=== PATIENT | female | born 1995 | race Caucasian/White ===

== ENCOUNTER → 2017-10-03 13:55 | Outpatient (CLI) | payer BC, SELFPAY ==
[2017-10-03 14:19] LABS: Basophils % 0.6 % (0.1-2.0); Eosinophils # 0.3 K/mm3 (0.0-0.4); Eosinophils % 3.9 % (0.1-12.0); Hematocrit 45.2 % (37.0-47.0); Hemoglobin 14.2 g/dL (12.2-16.2); Lymphocytes # 2.3 K/mm3 (0.7-4.5); Lymphocytes % 34.9 K/mm3 (10-50); Mean Corpuscular HGB Conc 31.4 g/dL (31.8-35.4); Mean Corpuscular Hemoglobin 27.8 pg (27.0-31.2); Mean Corpuscular Volume 88.6 fl (81-99); Mean Platelet Volume 7.7 fl (7.4-10.4); Monocytes # 0.4 K/mm3 (0.1-1.0); Monocytes % 5.4 % (1.7-9.3); Neutrophils # 3.7 K/mm3 (1.8-7.8); Neutrophils % 55.2 % (37.0-80.0); Platelet Count 287 K/mm3 (142-424); Red Cell Distribution Width 12.3 % (11.5-17.5); White Blood Count 6.6 K/mm3 (4.8-10.8)
[2017-10-03 14:43] LABS: Urine Pregnancy, HCG Qual. Negative (Negative)
== END ==
PROVIDERS: Visit Provider Otolaryngology
DX: Z01.818 Encounter for other preprocedural examination (principal); H65.22 Chronic serous otitis media, left ear; H66.92 Otitis media, unspecified, left ear
CPT/HCPCS: 81025; 85025

== ENCOUNTER → 2019-04-20 16:39 | Outpatient (CLI) | payer BC, SELFPAY ==
[2019-04-20 21:02] LABS: HCG,Quantitative 0 mIU/mL
[2019-04-22 11:06] LABS: HIV Screen 4th Generation wRfx Non Reactive (Non Reactive); Rapid Plasma Reagin Ab Titer Non Reactive (NonRea<1:1)
[2019-04-22 11:11] LABS: Hep A Ab, IgM Negative (Negative); Hepatitis B Core Antibody IgM Negative (Negative); Hepatitis B Surface Antigen Negative (Negative); Hepatitis C Antibody <0.1 s/co ratio (0.0-0.9)
[2019-04-24 06:26] LABS: HSV 1 IgG, Type Spec 1.88 index (0.00-0.90); HSV 2 IgG, Type Spec <0.91 index (0.00-0.90)
== END ==
PROVIDERS: Visit Provider Nurse Practitioner Obstetrics & Gynecology
DX: Z72.51 High risk heterosexual behavior (principal)
CPT/HCPCS: 36415; 80074; 84702; 86592; 86695; 86703; 86790; G0432

== ENCOUNTER → 2019-05-11 12:27 | Outpatient (CLI) | payer BC, SELFPAY ==
[2019-05-11 13:02] LABS: Basophils % 0.4 % (0.1-2.0); Eosinophils # 0.1 K/mm3 (0.0-0.4); Eosinophils % 1.2 % (0.1-12.0); Hematocrit 42.3 % (37.0-47.0); Hemoglobin 13.8 g/dL (12.2-16.2); Lymphocytes # 2.3 K/mm3 (0.7-4.5); Lymphocytes % 21.5 % (10-50); Mean Corpuscular HGB Conc 32.6 g/dL (31.8-35.4); Mean Corpuscular Volume 91.8 fl (81-99); Mean Platelet Volume 8.1 fl (7.4-10.4); Monocytes # 0.4 K/mm3 (0.1-1.0); Monocytes % 4.1 % (1.7-9.3); Neutrophils # 7.6 K/mm3 (1.8-7.8); Neutrophils % 72.8 % (37.0-80.0); Platelet Count 314 K/mm3 (142-424); Red Cell Distribution Width 12.2 % (11.5-17.5); White Blood Count 10.5 K/mm3 (4.8-10.8)
[2019-05-12 09:45] LABS: HIV Screen 4th Generation wRfx Non Reactive (Non Reactive); Rapid Plasma Reagin Ab Titer Non Reactive (NonRea<1:1)
[2019-05-13 10:46] LABS: Hepatitis B Surface Antigen Negative (Negative); Hepatitis C Antibody <0.1 s/co ratio (0.0-0.9)
== END ==
PROVIDERS: PCP Nurse Practitioner Obstetrics & Gynecology; Visit Provider Nurse Practitioner Obstetrics & Gynecology
DX: Z34.90 Encounter for supervision of normal pregnancy, unspecified, unspecified trimester (principal)
CPT/HCPCS: 36415; 85025; 86592; 86703; 86762; 86850; 87340; 87380; G0432

== ENCOUNTER 2020-03-01 17:50 | Emergency (ER) | payer BC, SELFPAY ==
[2020-03-01 17:51] VITALS: BP 137/79; PULSE 80; RESP 16; TEMP 36.6; O2SAT 98; BMI 29.2
--- NOTE | 2020-03-01 18:36 | HMH.EDUTC ---
[facility] [place]ression: Abscess of left external ear Left otitis media Qualifiers: Otitis media type: suppurative Chronicity: acute Recurrence: non-recurrent Spontaneous tympanic membrane rupture: without spontaneous rupture Qualified Code(s): H66.002 - Acute suppurative otitis media without spontaneous rupture of ear drum, left ear Disposition: Home, Self-Care Condition on Discharge: Good Instructions: Middle Ear Infection Additional Instructions: Drink plenty of fluids. Take tylenol or ibuprofen for pain or fever. Take the medications as directed. Follow up with your regular doctor. GO TO THE ER FOR ANY WORSENING SYMPTOMS Apply a warm wet wash cloth to your left external ear three or four times per day. Apply the topical antibiotic ointment (mupirocin) to the knot on your ear as directed. Prescriptions: Amoxicillin [Amoxicillin 500mg Tab] 500 mg PO TID 10 Days #30 tab Transmission Status: Received by [facility] Mupirocin [Bactroban 2% Ointment 22gm tube] 1 applicatio TP TID 7 Days #1 tube Transmission Status: Received by [facility] Referrals: Jam Gordon MD [Primary Care Provider] - Time of Disposition: 18:46 Medical Decision Making - Medical Records Medical records reviewed: No: I reviewed the patient's medical records. - Edd Inquiry Pt receiving controlled substance: No Vital Signs: 03/01/20 17:51 Temperature 98 F Temperature Source Oral Pulse Rate [Right] 80 Respiratory Rate 16 Blood Pressure [Right Arm] 137/79 Blood Pressure Mean [Right Arm] 98 Blood Pressure Source [Right Arm] Automatic Cuff Blood Pressure Position [Right Arm] Sitting 02 Sat by Pulse Oximetry 98 Oxygen Delivery Method Room Air [facility] [place] - General Stated complaint: Left ear knot,ringin in ear Time Seen by Provider: 03/01/20 18:20 Mode of Arrival: Ambulatory Source of Information: Patient Limitations: No Limitations Description of Symptoms (Recalled from Triage Doc. by RN): pt c/o knot in her left ear HEENT Symptoms (Recalled from RN notes): No Resp Symptoms (Recalled from RN notes): No Skin Symptoms (Recalled from RN notes): Yes (knot on left ear) MS Symptoms (Recalled from RN notes): No Functional Status (Recalled from RN notes): na - History of Present Illness Provider Complaint: She c/o having a painful knot on her left ear. This has been there for the past 3 days approx. She has also had some ringing in that ear. She has a history of having a t-tube in that ear. - Related Data Home Medications Medication Instructions Recorded Confirmed biotin 1 mg capsule 1 mg PO DAILY 05/11/19 05/20/19 prenat.vits,robbie,[id number] 1 tab PO DAILY 05/11/19 05/20/19 Previous Rx's Medication Instructions Recorded Amoxicillin [Amoxicillin 500mg Tab] 500 mg PO TID 10 Days #30 tab 03/01/20 Mupirocin [Bactroban 2% Ointment 1 applicatio TP TID 7 Days #1 tube 03/01/20 22gm tube] Allergies Allergy/AdvReac Type Severity Reaction Status Date / Time No Known Allergies Allergy Verified 03/01/20 18:07 - Worker's Comp Is this a Worker's Comp case?: No [facility] History - Hepatitis A Screen Drug use history?: No High risk sexual behaviors?: No History of sexually transmitted infection?: No Currently employed?: No Childcare worker?: No Do you have indoor plumbing?: Yes Do you have electricity?: Yes Attestation statement:: This patient has been screened for Hepatitis A risk factors. I have reviewed the patient's past medical history: Yes Medical History: Reports:: Depression Denies:: Cancer, Diabetes Mellitus Type 1, Diabetes Mellitus Type 2, Internal Pacemaker, MRSA, Seizures Other Medical History: Reports: Other. Denies: Blood Transfusion Reaction Laterality Cases: Bilateral: Tonsillectomy, Other Other Surgeries: Yes: No Previous Surgery. No: Pacemaker Amputation: No Fractures: No - Social History Smoking Status: Current every d
[2020-03-01 18:46] VITALS: BP 130/70; PULSE 84; RESP 16; TEMP 36.9; O2SAT 100
== END 2020-03-01 18:50 | disposition home or self-care (01) ==
PROVIDERS: Emergency Provider Nurse Practitioner Family; PCP Emergency Medicine
DX: H60.02 Abscess of left external ear (principal); H66.002 Acute suppurative otitis media without spontaneous rupture of ear drum, left ear; F33.1 Major depressive disorder, recurrent, moderate; F17.210 Nicotine dependence, cigarettes, uncomplicated
CPT/HCPCS: 99201

== ENCOUNTER 2020-05-11 16:37 | Emergency (ER) | payer BC, OTHER, SELFPAY ==
[2020-05-11 16:37] VITALS: BP 117/69; PULSE 110; RESP 20; TEMP 37; O2SAT 97; BMI 30.7
--- NOTE | 2020-05-11 17:13 | HMH.EDUTC ---
[facility] [place] Impression: UTI (urinary tract infection) Qualifiers: Urinary tract infection type: site unspecified Hematuria presence: with hematuria Qualified Code(s): N39.0 - Urinary tract infection, site not specified Disposition: Home, Self-Care Condition on Discharge: Good Instructions: Trimethoprim/Sulfamethoxazole (Alternative Therapy), Urinary Tract Infection, DI for Urinary Tract Infection (UTI), Phenazopyridine Additional Instructions: *Increase fluids. Water not Soda or Tea *Start antibiotic immediately and be sure to take as ordered for the FULL length of time although you should start to see improvement over the next 48 hours *Pyridium as needed Remember this medication will turn your urine [place]. This is normal but it will stain what ever it gets on *You should not use Pyridium for more than 48 hours. If so , follow up with your primary physician to review urine culture and ensure that antibiotic is adequate for infection *Be SURE to follow up anytime for new or worsening symptoms with your family doctor. AND in 48 hours for urine culture results with your family doctor, if you do not have a doctor then you may call back to the [facility] for urine culture results and further treatment. We do recommend that you choose and establish care with a Primary Care Physician. AND follow up with them in 10-14 days to repeat UA to ensure infection is resolved and blood no longer present *Be sure to let your PCP know that we sent urine cultures from the [facility] so they can follow up to ensure that you area the on the correct antibiotic Call your doctor office and make appointment for 48 hours (2 days from today) to follow up and get the results of your urine culture and further treatment Make sure to follow up to make sure that you are on the correct medication Return if needed Straight to ER if any life threatening symptoms Prescriptions: Sulfamethoxazole/Trimethoprim [Bactrim DS tablet] 1 each PO BID 10 Days #20 tab Transmission Status: Received by [id number] Phenazopyridine HCl [Pyridium 200mg Tablet] 200 pow PO TID #6 tab Transmission Status: Received by [id number] Referrals: Jam Gordon MD [Primary Care Provider] - As needed Time of Disposition: 17:21 Medical Decision Making - Edd Inquiry Pt receiving controlled substance: No Edd was queried for this patient: No Vital Signs: 05/11/20 16:37 05/11/20 17:22 Temperature 98.6 F 98.6 F Temperature Source Oral Oral Pulse Rate 110 H Pulse Rate [Left Radial] 110 H Respiratory Rate 20 20 Blood Pressure 117/69 Blood Pressure [Right Arm] 117/69 Blood Pressure Mean [Right Arm] 85 Blood Pressure Source Automatic Cuff Blood Pressure Source [Right Arm] Automatic Cuff Blood Pressure Position Sitting Blood Pressure Position [Right Arm] Sitting 02 Sat by Pulse Oximetry 97 Oxygen Delivery Method Room Air Room Air - Lab Data Lab results reviewed: Yes: I reviewed the patient's lab results. Lab Results 05/11/20 16:50: Urine Color Yellow, Urine Appearance Cloudy, Urine pH 6.0, Ur Specific [place] 1.020, Urine Protein Trace, Urine Glucose (UA) Negative, Urine Ketones Negative, Urine Blood Trace-i, Urine Nitrate Positive, Urine Bilirubin Negative, Urine Urobilinogen 0.2, Ur Leukocyte Esterase 1+ A, Urine WBC 10-20, Urine Bacteria 2+ 05/11/20 17:10: Urine Color Yellow, Urine Appearance Clear, Urine pH 6.0, Ur Specific [place] 1.020, Urine Protein 1+, Urine Glucose (UA) Negative, Urine Ketones Negative, Urine Blood 1+, Urine Nitrate Positive A, Urine Bilirubin Negative, Urine Urobilinogen 0.2, Ur Leukocyte Esterase 1+ A Orders (Tests/Meds): ORDERS Category Date Time Status Urine Culture Stat Micro 05/11/20 16:50 Received [facility] [place] - General Stated complaint: possible UTI Time Seen by Provider: 05/11/20 17:13 Mode of Arrival: Ambulatory Source of Information: Patient Limitations: No Limitations Description of Symptoms
[2020-05-11 17:22] VITALS: BP 117/69; PULSE 110; RESP 20; TEMP 37; O2SAT 97
[2020-05-11 17:23] LABS: Microscopic, Urine URINE MICROSCOPIC (MICROSCOPIC)
[2020-05-11 17:27] LABS: Appearance,Urine CLOUDY (Clear); Bilirubin,Urine Negative (Negative); Blood, Urine TRACE-I (Negative); Color,Urine YELLOW (Yellow); Glucose,Urine (UA) Negative (Negative); Ketones,Urine Negative (Negative); Leukocyte Esterase,Urine 1+ (Negative); Nitrate,Urine POSITIVE (Negative); Protein,Urine TRACE (Negative); Urobilinogen,Urine 0.2 EU/dl (0.2)
[2020-05-11 17:36] LABS: Bacteria,Urine 2+ /lpf
[2020-05-11 19:01] LABS: Apearance,Urine Clear (Clear); Bilirubin,Urine Negative (Negative); Blood, Urine 1+ (Negative); Color,Urine Yellow (Yellow); Glucose,Urine (UA) Negative (Negative); Ketones,Urine Negative (Negative); Protein,Urine 1+ (Negative); UTC Leukocyte Esterase,Urine 1+ (Negative); UTC Nitrate,Urine Positive (Negative); Urobilinogen,Urine 0.2 EU/dl (0.2)
== END 2020-05-11 17:25 | disposition home or self-care (01) ==
PROVIDERS: Emergency Provider Nurse Practitioner; PCP Emergency Medicine
DX: N39.0 Urinary tract infection, site not specified (principal); F33.1 Major depressive disorder, recurrent, moderate; F17.210 Nicotine dependence, cigarettes, uncomplicated
CPT/HCPCS: 81001; 81003; 87086; 87088; 87186; 99202; G0463

== ENCOUNTER 2020-08-10 16:47 | Emergency (ER) | payer OTHER, SELFPAY ==
[2020-08-10 16:57] VITALS: BP 120/75; PULSE 98; RESP 16; TEMP 36.8; O2SAT 97; BMI 31.9
[2020-08-10 17:02] VITALS: BP 120/75; PULSE 98; RESP 16; TEMP 36.8; O2SAT 97
[2020-08-10 17:07] LABS: Apearance,Urine Clear (Clear); Color,Urine Yellow (Yellow)
[2020-08-10 17:08] LABS: Bilirubin,Urine Negative (Negative); Blood, Urine Negative (Negative); Glucose,Urine (UA) Negative (Negative); Ketones,Urine Negative (Negative); Protein,Urine Negative (Negative); Specific Gravity, Urine 1.025 (1.005-1.030); UTC Leukocyte Esterase,Urine Negative (Negative); UTC Nitrate,Urine Negative (Negative); Urobilinogen,Urine 2 EU/dl (0.2)
--- NOTE | 2020-08-10 17:18 | HMH.EDUTC ---
[facility] [place]: Low back pain Qualifiers: Chronicity: acute Back pain laterality: bilateral Sciatica presence: without sciatica Qualified Code(s): M54.5 - Low back pain Disposition: Home, Self-Care Condition on Discharge: Good Instructions: DI for Low Back Pain Additional Instructions: Go home and rest. It would be best if you rested tomorrow too. No heavy lifting. No twisting. Follow up with your regular doctor. GO TO THE ER FOR ANY WORSENING SYMPTOMS OR CONCERN, ESPECIALLY BOWEL OR BLADDER ISSUES, SADDLE AREA NUMBNESS, FEVER, ETC Prescriptions: Ibuprofen [Ibuprofen 600mg Tablet] 600 mg PO Q6HP PRN #30 tab PRN Reason: Mild Pain Transmission Status: Received by [id number] Referrals: Jam Gordon MD [Primary Care Provider] - Time of Disposition: 17:23 Medical Decision Making - Medical Records Medical records reviewed: No: I reviewed the patient's medical records. - Edd Inquiry Pt receiving controlled substance: No Vital Signs: 08/10/20 16:57 08/10/20 17:02 Temperature 98.3 F 98.3 F Temperature Source Oral Pulse Rate 98 H Pulse Rate [Left] 98 H Respiratory Rate 16 16 Blood Pressure 120/75 Blood Pressure [Right Arm] 120/75 Blood Pressure Mean [Right Arm] 90 Blood Pressure Source [Right Arm] Automatic Cuff Blood Pressure Position [Right Arm] Sitting 02 Sat by Pulse Oximetry 97 Oxygen Delivery Method Room Air - Lab Data Lab Results 08/10/20 17:06: Urine Color Yellow, Urine Appearance Clear, Urine pH 6.0, Ur Specific [place] 1.025, Urine Protein Negative, Urine Glucose (UA) Negative, Urine Ketones Negative, Urine Blood Negative, Urine Nitrate Negative, Urine Bilirubin Negative, Urine Urobilinogen 2, Ur Leukocyte Esterase Negative [facility] [place] General Stated complaint: Possible UTI Time Seen by Provider: 08/10/20 17:18 Mode of Arrival: Ambulatory Source of Information: Patient, Significant Other Limitations: No Limitations Description of Symptoms (Recalled from Triage Doc. by RN): UTI HEENT Symptoms (Recalled from RN notes): No Resp Symptoms (Recalled from RN notes): No Skin Symptoms (Recalled from RN notes): No MS Symptoms (Recalled from RN notes): No Functional Status (Recalled from RN notes): wnl - History of Present Illness Provider Complaint: She states that she has had low back pain for the past 2 days. She is worried that she has a uti because in the past she has felt like this with one. - Related Data Home Medications Medication Instructions Recorded Confirmed biotin 1 mg capsule 1 mg PO DAILY 05/11/19 05/20/19 prenat.vits,robbie,qcs-nyea-prugy 1 tab PO DAILY 05/11/19 05/20/19 Previous Rx's Medication Instructions Recorded Amoxicillin [Amoxicillin 500mg Tab] 500 mg PO TID 10 Days #30 tab 03/01/20 Mupirocin [Bactroban 2% Ointment 1 applicatio TP TID 7 Days #1 tube 03/01/20 22gm tube] Phenazopyridine HCl [Pyridium 200 pow PO TID #6 tab 05/11/20 200mg Tablet] Sulfamethoxazole/Trimethoprim 1 each PO BID 10 Days #20 tab 05/11/20 [Bactrim DS tablet] Ibuprofen [Ibuprofen 600mg 600 mg PO Q6HP PRN #30 tab 08/10/20 Tablet] Allergies Allergy/AdvReac Type Severity Reaction Status Date / Time No Known Allergies Allergy Verified 08/10/20 17:00 - Worker's Comp Is this a Worker's Comp case?: No [facility] [place] History - Hepatitis A Screen Drug use history?: No High risk sexual behaviors?: No History of sexually transmitted infection?: No Currently employed?: No Childcare worker?: No Do you have indoor plumbing?: Yes Do you have electricity?: Yes Attestation statement:: This patient has been screened for Hepatitis A risk factors. I have reviewed the patient's past medical history: Yes Medical History: Reports:: Depression Denies:: Cancer, Diabetes Mellitus Type 1, Diabetes Mellitus Type 2, Internal Pacemaker, MRSA, Seizures Other Medical History: Reports: Other. Denies: Blood Trans
== END 2020-08-10 17:24 | disposition home or self-care (01) ==
PROVIDERS: Emergency Provider Nurse Practitioner Family; PCP Emergency Medicine
DX: M54.5 Low back pain (principal); F17.210 Nicotine dependence, cigarettes, uncomplicated
CPT/HCPCS: 81003; 99202; G0463

== ENCOUNTER → 2021-04-21 13:32 | Outpatient (CLI) | payer OTHER, SELFPAY ==
[2021-04-21 13:35] LABS: Microscopic, Urine URINE MICROSCOPIC (MICROSCOPIC)
[2021-04-21 14:28] LABS: Appearance,Urine CLEAR (Clear); Bilirubin,Urine Negative (Negative); Blood, Urine Negative (Negative); Color,Urine YELLOW (Yellow); Glucose,Urine (UA) Negative (Negative); Ketones,Urine Negative (Negative); Leukocyte Esterase,Urine Negative (Negative); Nitrate,Urine Negative (Negative); PH,Urine 5.5 (5.0-8.5); Protein,Urine Negative (Negative); Specific Gravity, Urine >= 1.030 (1.005-1.030); Urobilinogen,Urine 0.2 EU/dl (0.2)
[2021-04-21 14:45] LABS: Bacteria,Urine Trace /lpf
== END ==
PROVIDERS: Visit Provider Nurse Practitioner Obstetrics & Gynecology
DX: N39.0 Urinary tract infection, site not specified (principal)
CPT/HCPCS: 81001

== ENCOUNTER 2021-05-27 11:28 | Emergency (ER) | payer OTHER, SELFPAY ==
[2021-05-27 11:36] VITALS: BP 133/78; PULSE 79; RESP 18; TEMP 36.9; O2SAT 98; BMI 30.2
--- NOTE | 2021-05-27 12:08 | HMH.EDUTC ---
[facility] [place]: Rectal [place] Disposition: Home, Self-Care Condition on Discharge: Good Instructions: Hemorrhoids, DI for Rectal Bleeding Additional Instructions: Drink plenty of fluids. Eat a diet high in fiber. Take tylenol for pain. Take the medications as directed. Follow up with your regular doctor within 48 hours for a recheck. GO TO THE ER FOR ANY WORSENING SYMPTOMS Prescriptions: Pramoxine HCl [Proctofoam] 1 applicatio TP BIDP PRN 14 Days #1 applic PRN Reason: Hemorrhoids Transmission Status: Received by [id number] Referrals: Jam Gordon MD [Primary Care Provider] - Time of Disposition: 14:15 Medical Decision Making - Medical Records Medical records reviewed: No: I reviewed the patient's medical records. - Edd Inquiry Pt receiving controlled substance: No Vital Signs: 05/27/21 11:36 05/27/21 14:26 Temperature 98.4 F 98.4 F Temperature Source Oral Pulse Rate 79 Pulse Rate [Left] 79 Respiratory Rate 18 18 Blood Pressure 133/78 Blood Pressure [Right Arm] 133/78 Blood Pressure Mean [Right Arm] 96 02 Sat by Pulse Oximetry 98 - Lab Data Lab results reviewed: Yes: I reviewed the patient's lab results. Lab Results 05/27/21 12:53: WBC 7.3, RBC 4.76, Hgb 13.7, Hct 42.9, MCV 90.0, MCH 28.8, MCHC 32.0, RDW 12.9, Plt Count 364, MPV 8.7, Neut % (Auto) 53.6, Lymph % (Auto) 36.1, [place] % (Auto) 5.9, Eos % (Auto) 2.6, Baso % (Auto) 1.8, Neut # (Auto) 3.9, Lymph # (Auto) 2.7, [place] # (Auto) 0.4, Eos # (Auto) 0.2, Baso # (Auto) 0.1 05/27/21 12:53: Sodium 136, Potassium 4.3, Chloride 105, Carbon Dioxide 24, Anion Gap 11.3, BUN 9, Creatinine 0.60, Estimated Creat Clear 158, Estimated GFR 121, Est GFR ( Amer) 146, Glucose 87, Calcium 8.8, Total Bilirubin 0.3, AST 46 H, ALT 55, Alkaline Phosphatase 82, Total Protein 7.8, Albumin 4.9, Globulin 2.9, Albumin/Globulin Ratio 1.7 Result diagrams: 05/27/21 12:53 05/27/21 12:53 [facility] [place] General Stated complaint: blood in stool Time Seen by Provider: 05/27/21 12:00 Mode of Arrival: Ambulatory Source of Information: Patient Limitations: No Limitations Description of Symptoms (Recalled from Triage Doc. by RN): pt states she had a hemorrhoid last mo. pt states she has been having rectal bleeding the past two weeks. pt states states she filled the toilet with blood this am. HEENT Symptoms (Recalled from RN notes): No Resp Symptoms (Recalled from RN notes): No Skin Symptoms (Recalled from RN notes): No MS Symptoms (Recalled from RN notes): No Functional Status (Recalled from RN notes): wnl - History of Present Illness Provider Complaint: she states that she had a bowel movement this morning that has blood in it. She states that to her it looked like a low of blood. She states that there was bright red blood and dark blood both present. She denies any rectal pain or other complaints. She did have issues with a hemorrhoid about 3 months ago. But, she states that her pain and symptoms went away then and she is not hurting like she did then. - Related Data Home Medications Medication Instructions Recorded Confirmed copper 380 square mm intrauterine INTRAUTERI 11/21/20 05/09/21 device Previous Rx's Medication Instructions Recorded phentermine 37.5 mg tablet 37.5 mg PO DAILY #30 tab 03/20/21 Pramoxine HCl [Proctofoam] 1 applicatio TP BIDP PRN 14 Days 05/27/21 #1 applic Allergies Allergy/AdvReac Type Severity Reaction Status Date / Time No Known Allergies Allergy Verified 05/09/21 08:52 - Worker's Comp Is this a Worker's Comp case?: No [facility] History - Hepatitis A Screen Drug use history?: No High risk sexual behaviors?: No History of sexually transmitted infection?: No Currently employed?: No Childcare worker?: No Do you have indoor plumbing?: Yes Do you have electricity?: Yes Attestation statement:: This patient has been screened for Hepatitis A risk f
[2021-05-27 13:37] LABS: Basophils # 0.1 K/mm3 (0-0.2); Basophils % 1.8 % (0.1-2.0); Eosinophils # 0.2 K/mm3 (0.0-0.4); Eosinophils % 2.6 % (0.1-12.0); Hematocrit 42.9 % (37.0-47.0); Hemoglobin 13.7 g/dL (12.2-16.2); Lymphocytes # 2.7 K/mm3 (0.7-4.5); Lymphocytes % 36.1 % (10-50); Mean Corpuscular Hemoglobin 28.8 pg (27.0-31.2); Mean Platelet Volume 8.7 fl (7.4-10.4); Monocytes # 0.4 K/mm3 (0.1-1.0); Monocytes % 5.9 % (1.7-9.3); Neutrophils # 3.9 K/mm3 (1.8-7.8); Neutrophils % 53.6 % (37.0-80.0); Platelet Count 364 K/mm3 (142-424); Red Blood Count 4.76 M/mm3 (4.20-5.40); Red Cell Distribution Width 12.9 % (11.5-17.5); White Blood Count 7.3 K/mm3 (4.8-10.8)
[2021-05-27 13:54] LABS: Chloride 105 mmol/L (98-107)
[2021-05-27 13:55] LABS: Potassium 4.3 mmoL/L (3.5-5.1); Sodium 136 mmol/L (136-145)
[2021-05-27 13:58] LABS: Alanine Aminotransferase 55 U/L (12-78); Albumin Level 4.9 g/dl (3.5-5.0); Albumin/Globulin Ratio 1.7 (1.1-1.8); Alkaline Phosphatase 82 U/L (38-126); Anion Gap 11.3 mEq/L (5-15); Aspartate Amino Transferase 46 U/L (14-36); Bilirubin,Total 0.3 mg/dl (0.2-1.3); Blood Urea Nitrogen 9 mg/dl (7-17); Calcium 8.8 mg/dl (8.4-10.2); Carbon Dioxide 24 mmol/L (22.0-30.0); Creatinine Clearance Estimated 158 mL/min (50-200); Estimated Glomerular Filt Rate 121 ml/min (>60); GFR (African American) 146 ML/MIN (>60); Globulin 2.9 g/dL (1.3-3.2); Glucose 87 mg/dl (74-100); Total Protein,Serum 7.8 g/dl (6.3-8.2)
[2021-05-27 14:26] VITALS: BP 133/78; PULSE 79; RESP 18; TEMP 36.9
== END 2021-05-27 14:26 | disposition home or self-care (01) ==
PROVIDERS: Emergency Provider Nurse Practitioner Family; PCP Emergency Medicine
DX: K62.5 Hemorrhage of anus and rectum (principal); F33.1 Major depressive disorder, recurrent, moderate; F17.210 Nicotine dependence, cigarettes, uncomplicated
CPT/HCPCS: 80053; 85025; 99202; G0463

== ENCOUNTER 2021-06-21 16:35 | Emergency (ER) | payer OTHER, SELFPAY ==
--- NOTE | 2021-06-21 18:11 | XR_ITS ---
PROCEDURE INFORMATION: Exam: XR Lumbosacral Spine Exam date and time: 06/21/2021 6:11 PM Age: 25 years old Clinical indication: Patient HX: Low back pain after moving a stove. TECHNIQUE: Imaging protocol: XR of the lumbosacral spine. Views: 2 or 3 views. COMPARISON: CR [id number] XR lumbar spine min 4V 01/11/2018 5:26 AM FINDINGS: Bones/joints: Satisfactory alignment of the vertebral bodies is demonstrated. Multilevel Schmorl's node formation at L3 and L4. Soft tissues: Unremarkable. Organs: Incidental note of intrauterine device. IMPRESSION: No evidence of acute osseous injury or significant degenerative arthritic type change.
[2021-06-21 18:12] VITALS: BP 115/86; PULSE 88; RESP 19; TEMP 37; O2SAT 99; BMI 25.4
--- NOTE | 2021-06-21 18:18 | HMH.EDUTC ---
[facility] [place] Clinical Impression: Low back strain Qualifiers: Encounter type: initial encounter Qualified Code(s): S39.012A - Strain of muscle, fascia and tendon of lower back, initial encounter Disposition: Home, Self-Care Condition on Discharge: Good Instructions: Low Back Pain, DI for Low Back Pain Additional Instructions: Go home and rest. It would be best if you rested tomorrow too. No heavy lifting. No twisting. Take the oral medications as directed. The muscle relaxer (cyclobenzaprine--Flexeril) will make you drowsy, so don't drive or operate heavy machinery after taking it. Don't start the oral steroids (medrol dose pack) until tomorrow, since you had the shots in here today. Follow up with your regular doctor. GO TO THE ER FOR ANY WORSENING SYMPTOMS OR CONCERN, ESPECIALLY BOWEL OR BLADDER ISSUES, SADDLE AREA NUMBNESS, FEVER, ETC Prescriptions: Cyclobenzaprine HCl [Cyclobenzaprine 10mg Tab] 10 mg PO BIDP PRN #20 tab PRN Reason: Muscle Spasm Transmission Status: Received by [facility] methylPREDNISolone [Medrol] 4 mg PO DIRECTED 6 Days #21 packet Transmission Status: Received by [facility] Referrals: Jam Gordon MD [Primary Care Provider] - Forms: Work/School Release Time of Disposition: 19:00 Medical Decision Making - Medical Records Medical records reviewed: No: I reviewed the patient's medical records. - Edd Inquiry Pt receiving controlled substance: No Vital Signs: 06/21/21 18:12 06/21/21 19:12 Temperature 98.6 F 98.6 F Temperature Source Oral Pulse Rate 88 Pulse Rate [Left Radial] 88 Respiratory Rate 19 19 Blood Pressure 115/86 Blood Pressure [Left Arm] 115/86 Blood Pressure Mean [Left Arm] 95 Blood Pressure Source [Left Arm] Automatic Cuff Blood Pressure Position [Left Arm] Sitting 02 Sat by Pulse Oximetry 99 Oxygen Delivery Method Room Air - Lab Data Lab Results 06/21/21 18:12: [facility] Negative Orders (Tests/Meds): ED MEDICATIONS Discontinued Medications Generic Name Dose Route Start Last Admin Trade Name Freq PRN Reason Stop Dose Admin Ketorolac Tromethamine 60 mg 06/21/21 18:39 06/21/21 19:06 Ketorolac 60mg/2ml Vial IM 06/21/21 18:40 60 mg ONCE ONE Administration Methylprednisolone Sodium Succinate 125 mg 06/21/21 18:39 06/21/21 19:07 Methylprednisolone Sod Succ 125mg Vial IM 06/21/21 18:40 125 mg ONCE ONE Administration ORDERS Category Date Time Status XR lumbar spine 2-3V Stat Exams 06/21/21 18:11 Taken [facility] [place] HPI - General Stated complaint: lower back pain x 1 week Time Seen by Provider: 06/21/21 18:18 Mode of Arrival: Ambulatory Source of Information: Patient Limitations: No Limitations Description of Symptoms (Recalled from Triage Doc. by RN): C/O lower back pain extending into hips x4 days after lifting a stove HEENT Symptoms (Recalled from RN notes): No Resp Symptoms (Recalled from RN notes): No Skin Symptoms (Recalled from RN notes): No MS Symptoms (Recalled from RN notes): Yes (back pain) Functional Status (Recalled from RN notes): n/a - History of Present Illness Provider Complaint: She states that she had to move her kitchen stove about 1 week ago and since then she has had low back pain that radiates down both her legs at times. She has a history of having similar episodes with her back at times. - Related Data Home Medications Medication Instructions Recorded Confirmed copper 380 square mm intrauterine INTRAUTERI 11/21/20 05/09/21 device Previous Rx's Medication Instructions Recorded phentermine 37.5 mg tablet 37.5 mg PO DAILY #30 tab 03/20/21 Pramoxine HCl [Proctofoam] 1 applicatio TP BIDP PRN 14 Days 05/27/21 #1 applic Cyclobenzaprine HCl 10 mg PO BIDP PRN #20 tab 06/21/21 [Cyclobenzaprine 10mg Tab] methylPREDNISolone [Medrol] 4 mg PO DIRECTED 6 Days #21 06/21/21 packet Allergies Allergy/AdvReac
[2021-06-21 18:19] LABS: UTC Pregnancy Test, Urine Negative (Negative)
--- NOTE | 2021-06-21 18:24 | PC.NURSE ---
Pt to Rad
[2021-06-21 19:12] VITALS: BP 115/86; PULSE 88; RESP 19; TEMP 37; O2SAT 99
== END 2021-06-21 19:14 | disposition home or self-care (01) ==
PROVIDERS: Emergency Provider Nurse Practitioner Family; PCP Emergency Medicine
DX: S39.012A Strain of muscle, fascia and tendon of lower back, initial encounter (principal); X50.0XXA Overexertion from strenuous movement or load, initial encounter; Y92.019 Unspecified place in single-family (private) house as the place of occurrence of the external cause
CPT/HCPCS: 72100; 81025; 96372; 99212; G0463

== ENCOUNTER 2021-07-11 13:00 | Emergency (ER) | payer OTHER, SELFPAY ==
[2021-07-11 14:25] LABS: Apearance,Urine Clear (Clear); Bilirubin,Urine Negative (Negative); Blood, Urine Negative (Negative); Color,Urine Yellow (Yellow); Glucose,Urine (UA) Negative (Negative); Ketones,Urine Negative (Negative); Protein,Urine Negative (Negative); UTC Leukocyte Esterase,Urine Negative (Negative); UTC Nitrate,Urine Negative (Negative); UTC Pregnancy Test, Urine Negative (Negative); Urobilinogen,Urine 0.2 EU/dl (0.2)
[2021-07-11 15:41] VITALS: BP 128/86; PULSE 91; RESP 19; TEMP 36.6; O2SAT 98; BMI 23.9
--- NOTE | 2021-07-11 15:48 | HMH.EDUTC ---
[facility] [place] Clinical Impression: Abdominal discomfort Disposition: Home, Self-Care Condition on Discharge: Good Instructions: Constipation, DI for Acute Abdominal Pain Additional Instructions: Followup with your Family Doctor if no improvement or any worsening of symptoms for further work up and evaluation Return if needed Straight to ER if any life threatening symptoms or worsening of pain Referrals: Leah Florentino MD [Primary Care Provider] - As needed Time of Disposition: 15:58 Medical Decision Making - Edd Inquiry Pt receiving controlled substance: No Edd was queried for this patient: No Vital Signs: 07/11/21 15:41 07/11/21 16:03 Temperature 98 F 98 F Temperature Source Oral Pulse Rate 91 H Pulse Rate [Left] 91 H Respiratory Rate 19 19 Blood Pressure 128/86 Blood Pressure [Right Arm] 128/86 Blood Pressure Mean [Right Arm] 100 02 Sat by Pulse Oximetry 98 - Lab Data Lab results reviewed: Yes: I reviewed the patient's lab results. Lab Results 07/11/21 14:23: Urine Color Yellow, Urine Appearance Clear, Urine pH 7.0, Ur Specific [place] 1.020, Urine Protein Negative, Urine Glucose (UA) Negative, Urine Ketones Negative, Urine Blood Negative, Urine Nitrate Negative, Urine Bilirubin Negative, Urine Urobilinogen 0.2, Ur Leukocyte Esterase Negative, Tst Clinic Negative Medical Decision Narrative: Discussed with patient about transfer to the ED for further work up and evaluation and testing and patient declined states that she is not having any pain right now and did not want to stay that she will follow up with her family Doctor for further evaluation and testing [facility] [place] - General Stated complaint: abd/back pain Time Seen by Provider: 07/11/21 15:48 Mode of Arrival: Ambulatory Source of Information: Patient Limitations: No Limitations Description of Symptoms (Recalled from Triage Doc. by RN): pt c/o epigastric pain that encircles all the way around her back. HEENT Symptoms (Recalled from RN notes): No Resp Symptoms (Recalled from RN notes): No Skin Symptoms (Recalled from RN notes): No MS Symptoms (Recalled from RN notes): No Functional Status (Recalled from RN notes): wnl - History of Present Illness Provider Complaint: Patient states that she is not having pain right now but last night she had pain in her upper abdomen area and it felt like a spasm like pain States that it continued on and off last night but this morning it was gone State that she was worried that she may have a UTI or something so she came in - Related Data Home Medications Medication Instructions Recorded Confirmed copper 380 square mm intrauterine INTRAUTERI 11/21/20 05/09/21 device Previous Rx's Medication Instructions Recorded phentermine 37.5 mg tablet 37.5 mg PO DAILY #30 tab 03/20/21 Pramoxine HCl [Proctofoam] 1 applicatio TP BIDP PRN 14 Days 05/27/21 #1 applic Cyclobenzaprine HCl 10 mg PO BIDP PRN #20 tab 06/21/21 [Cyclobenzaprine 10mg Tab] methylPREDNISolone [Medrol] 4 mg PO DIRECTED 6 Days #21 06/21/21 packet Allergies Allergy/AdvReac Type Severity Reaction Status Date / Time No Known Allergies Allergy Verified 05/09/21 08:52 - Worker's Comp Is this a Worker's Comp case?: No H History - Hepatitis A Screen Drug use history?: No High risk sexual behaviors?: No History of sexually transmitted infection?: No Currently employed?: No Childcare worker?: No Do you have indoor plumbing?: Yes Do you have electricity?: Yes Attestation statement:: This patient has been screened for Hepatitis A risk factors. I have reviewed the patient's past medical history: Yes Medical History: Reports:: Depression Denies:: Cancer, Diabetes Mellitus Type 1, Diabetes Mellitus Type 2, Internal Pacemaker, MRSA, Seizures Other Medical History: Reports: Other. Denies: Blood Transfusion Reaction Laterality Cases: Bilateral: Tonsillectomy, Other Other Surgeries: Yes: No
[2021-07-11 16:03] VITALS: BP 128/86; PULSE 91; RESP 19; TEMP 36.6
== END 2021-07-11 16:07 | disposition home or self-care (01) ==
PROVIDERS: Emergency Provider Nurse Practitioner; PCP Family Medicine
DX: R10.13 Epigastric pain (principal); F17.210 Nicotine dependence, cigarettes, uncomplicated
CPT/HCPCS: 81003; 81025; 99212; G0463

== ENCOUNTER 2021-07-20 13:38 | Emergency (ER) | payer OTHER, SELFPAY ==
[2021-07-20 13:40] VITALS: BP 125/67; PULSE 74; RESP 18; TEMP 37; O2SAT 100; BMI 22.2
[2021-07-20 13:53] VITALS: BP 125/67; PULSE 74; RESP 18; TEMP 37; O2SAT 100
== END 2021-07-20 13:58 | disposition home or self-care (01) ==
LOC: UTC 13:41
PROVIDERS: Emergency Provider Nurse Practitioner; PCP Family Medicine
DX: S61.211A Laceration without foreign body of left index finger without damage to nail, initial encounter (principal); Z23 Encounter for immunization
CPT/HCPCS: 90471; 90715; 99211; G0463

== ENCOUNTER → 2021-07-27 07:54 | Outpatient (CLI) | payer OTHER, SELFPAY ==
--- NOTE | 2021-07-27 07:57 | US_ITS ---
FINAL REPORT CLINICAL HISTORY: RUQ PAIN,N/V,DIARRHEA FINDINGS: ULTRASOUND RIGHT UPPER QUADRANT/GALLBLADDER Sonographic imaging of the right upper quadrant was obtained. The pancreas is partially obscured. The liver is unremarkable. There are multiple echogenic shadowing stones within the gallbladder measuring up to about 8 mm in greatest dimension. There is no gallbladder wall thickening. There is no biliary ductal dilatation. The common duct is normal at 3 mm. Limited images of the right kidney are unremarkable. IMPRESSION: Multiple gallstones within the gallbladder. Reviewed, Interpreted and Dictated by Carrillo Dumont MD Transcribed by Keyanna Jaimes Authenticated by Carrillo Dumont MD on 07/27/2021 10:55:42 AM [facility]
== END ==
PROVIDERS: PCP Family Medicine; Visit Provider Nurse Practitioner Family
DX: R10.11 Right upper quadrant pain (principal); R11.2 Nausea with vomiting, unspecified; R19.7 Diarrhea, unspecified
CPT/HCPCS: 76705

== ENCOUNTER 2021-07-29 18:09 | Emergency (ER) | payer OTHER, SELFPAY ==
[2021-07-29 18:10] VITALS: BP 130/84; PULSE 85; RESP 16; TEMP 36.6; O2SAT 98
--- NOTE | 2021-07-29 18:13 | PC.NURSE ---
Patient ambulatory to restroom without complications
[2021-07-29 18:24] LABS: Microscopic, Urine URINE MICROSCOPIC (MICROSCOPIC)
--- NOTE | 2021-07-29 18:30 | ECG_ITS ---
APPROVED REPORT Exam: Resting ECG HR:69 bpm ECG Measurements Heart Rate 69 AXES TX 139 P 5 QRSd 84 QRS 62 QT 375 T 39 QTc 395 Conclusion SINUS RHYTHM NORMAL ECG UNCONFIRMED REPORT Electronically signed by : Anand Blankenship MD 07/30/2021 09:07:59
--- NOTE | 2021-07-29 18:32 | PC.NURSE ---
Patient given call light and blanket; family at BS
--- NOTE | 2021-07-29 18:34 | HMH.EDGENADL ---
ED Disposition Clinical Impression: Cholelithiasis Qualifiers: Cholelithiasis location: gallbladder Cholecystitis presence: without cholecystitis Biliary obstruction: without biliary obstruction Qualified Code(s): K80.20 - Calculus of gallbladder without cholecystitis without obstruction Disposition: Home, Self-Care Condition on Discharge: Fair Instructions: Fat-Restricted Diet, DI for Gallstones Additional Instructions: Low-fat diet. Ibuprofen as prescribed. Tylenol 3 home pack, then Percocet as needed for pain. Phenergan take-home pack, then Zofran as needed for nausea. Follow-up with the surgeon this coming week. Call Saturday to make appointment. You may follow-up with Dr. Astorga at [facility] for with a surgeon in [place] if your primary care provider wants to refer you to a surgeon there. Return to the emergency department if uncontrollable pain or vomiting, fever greater than 100.5 degrees, or jaundice. Additional instructions for CONTROLLED SUBSTANCES: You have been prescribed a medication that is a controlled substance. Controlled substances include pain medications known as opiates and sedative nerve medications known as benzodiazepines. Tramadol, fioricet, and gabapentin are also controlled substances. Some common opiates include: Codeine (such as Tylenol #3) Hydrocodone (Vicodin, Lortab, Lorcet, Paradis) Oxycodone (Percocet, Percodan, Oxycodone, Oxy IR) Some common benzodiazepines include: Diazepam (Valium) Lorazepam (Ativan) Alprazolam (Xanax) Clonazepam (Klonopin) Oxazepam (Serax) All of these controlled substances are highly addictive and frequently abused. Misuse can and frequently does lead to addiction as well as overdose and . Medication should be stored in a locked cabinet or other secure storage unit. Do not store the medication in a motor vehicle. Short term supplies, 3 days or less, are prescribed because of the highly addictive nature of the medication. Any of the controlled substance medication NOT taken should be disposed of properly and NOT SAVED. The recommended method of disposing of unused medications is: Place the medicines in a sealable plastic bag. If the medicine is a solid, crush it or add water to dissolve it. Add something undesirable (cat litter, coffee grounds, etc.) Dispose of sealed bag in household trash Do not flush or pour unused medicines down a sink or drain. Controlled substances should not be shared, given away or sold. Because of the addictive nature and frequent abuse, these medications are sometimes stolen. These medications should be kept in a safe place where they cannot be stolen. Do not keep them in your car or purse. Lost or stolen prescriptions for controlled substances WILL NOT BE REFILLED in this emergency department, regardless of whether a police report was filed. Prescriptions: Ibuprofen [Ibuprofen 600mg Tab] 600 mg PO Q6HP PRN #20 tab PRN Reason: Moderate Pain Transmission Status: Pending to [facility] Oxycodone HCl/Acetaminophen [Percocet 5/325mg tablet] 1 tab PO Q6HP PRN #10 tablet PRN Reason: Moderate To Severe Pain Transmission Status: Sent to [facility] Ondansetron [Zofran 4mg ODT] 4 mg PO TIDP PRN #10 tab PRN Reason: Nausea And Vomiting Transmission Status: Pending to [facility] Referrals: Leah Florentino MD [Primary Care Provider] - - Critical Care Critical Care Time: No Attestation: On 07/29/21, the high probability of a clinically significant, sudden or life threatening deterioration of the following system(s) required my full and direct attention, intervention and personal management. The time I documented below is in addition to time spent performing reported procedures but includes the following listed in this critical care notation. Medical Decision Making - Medical Records Medical records reviewed: Yes: I reviewed the patient's medical records.
--- NOTE | 2021-07-29 18:42 | PC.NURSE ---
ED MD at
[2021-07-29 18:50] LABS: Appearance,Urine CLEAR (Clear); Bilirubin,Urine Negative (Negative); Blood, Urine TRACE-I (Negative); Color,Urine YELLOW (Yellow); Glucose,Urine (UA) Negative (Negative); Ketones,Urine Negative (Negative); Leukocyte Esterase,Urine Negative (Negative); Nitrate,Urine Negative (Negative); Protein,Urine Negative (Negative); Specific Gravity, Urine >= 1.030 (1.005-1.030); Urobilinogen,Urine 0.2 EU/dl (0.2)
[2021-07-29 18:55] LABS: Urine Pregnancy, HCG Qual. Negative (Negative)
[2021-07-29 18:59] LABS: Amorphous Sediment,Urine Trace /lpf; WBC,Urine Occasional #/hpf (0-3)
[2021-07-29 19:08] LABS: Chloride 108 mmol/L (98-107); Potassium 3.7 mmoL/L (3.5-5.1); Sodium 139 mmol/L (136-145)
[2021-07-29 19:10] LABS: Blood Urea Nitrogen 12 mg/dl (7-17); Creatinine Clearance Estimated 155 mL/min (50-200); Estimated Glomerular Filt Rate 120 ml/min (>60); GFR (African American) 145 ML/MIN (>60); Lipase 42 U/L (23-300)
[2021-07-29 19:11] LABS: Alanine Aminotransferase 52 U/L (12-78); Albumin Level 4.2 g/dl (3.5-5.0); Albumin/Globulin Ratio 1.6 (1.1-1.8); Alkaline Phosphatase 76 U/L (38-126); Anion Gap 9.7 mEq/L (5-15); Aspartate Amino Transferase 43 U/L (14-36); Basophils # 0.1 K/mm3 (0-0.2); Basophils % 1.3 % (0.1-2.0); Bilirubin,Total 0.3 mg/dl (0.2-1.3); Calcium 8.6 mg/dl (8.4-10.2); Carbon Dioxide 25 mmol/L (22.0-30.0); Eosinophils # 0.1 K/mm3 (0.0-0.4); Eosinophils % 1.7 % (0.1-12.0); Globulin 2.6 g/dL (1.3-3.2); Glucose 122 mg/dl (74-100); Hematocrit 40.1 % (37.0-47.0); Hemoglobin 12.9 g/dL (12.2-16.2); Lymphocytes # 2.9 K/mm3 (0.7-4.5); Lymphocytes % 37.8 % (10-50); Mean Corpuscular Hemoglobin 29.5 pg (27.0-31.2); Mean Platelet Volume 7.9 fl (7.4-10.4); Monocytes # 0.3 K/mm3 (0.1-1.0); Monocytes % 3.9 % (1.7-9.3); Neutrophils # 4.2 K/mm3 (1.8-7.8); Neutrophils % 55.2 % (37.0-80.0); Platelet Count 307 K/mm3 (142-424); Red Blood Count 4.36 M/mm3 (4.20-5.40); Red Cell Distribution Width 13.2 % (11.5-17.5); Total Protein,Serum 6.8 g/dl (6.3-8.2); White Blood Count 7.7 K/mm3 (4.8-10.8)
[2021-07-29 20:49] VITALS: BP 127/81; PULSE 80; RESP 16; TEMP 36.6; O2SAT 98
[2021-07-29 20:50] VITALS: BP 118/72; PULSE 81; RESP 17; TEMP 36.8; O2SAT 98
== END 2021-07-29 20:51 | disposition home or self-care (01) ==
PROVIDERS: Emergency Provider Emergency Medicine; PCP Family Medicine
DX: K80.20 Calculus of gallbladder without cholecystitis without obstruction (principal); F33.1 Major depressive disorder, recurrent, moderate; F17.210 Nicotine dependence, cigarettes, uncomplicated
CPT/HCPCS: 80053; 81001; 81025; 83690; 85025; 93005; 96367; 96374; 96375; 99284; J2405

== ENCOUNTER → 2021-09-12 16:15 | Outpatient (CLI) | payer OTHER, SELFPAY | PROVIDERS: PCP Family Medicine; Visit Provider Family Medicine | DX: R19.7 Diarrhea, unspecified (principal) | CPT/HCPCS: 87045; 87493 ==

== ENCOUNTER 2021-09-16 09:03 | Emergency (ER) | payer OTHER, SELFPAY ==
[2021-09-16] VITALS (9 sets, daily range): BP systolic 106–132; BP diastolic 69–89; PULSE 71–88; RESP 14–21; TEMP 36.6–36.7; O2SAT 96–99; BMI 29.2
--- NOTE | 2021-09-16 09:03 | ECG_ITS ---
APPROVED REPORT Exam: Resting ECG HR:82 bpm ECG Measurements Heart Rate 82 AXES NV 130 P -1 QRSd 77 QRS 62 QT 369 T 27 QTc 408 Conclusion SINUS RHYTHM NORMAL ECG UNCONFIRMED REPORT Electronically signed by : Anand Blankenship MD 09/16/2021 17:22:37
--- NOTE | 2021-09-16 09:40 | CT_ITS ---
PROCEDURE INFORMATION: Exam: CT Abdomen And Pelvis With Contrast Exam date and time: 09/16/2021 10:28 AM Age: 26 years old Clinical indication: Abdominal pain; Epigastric; Prior surgery; Surgery date: <1 month; Surgery type: Gallbladder and tubal TECHNIQUE: Imaging protocol: Computed tomography of the abdomen and pelvis with contrast. Radiation optimization: All CT scans at this facility use at least one of these dose optimization techniques: automated exposure control; mA and/or kV adjustment per patient size (includes targeted exams where dose is matched to clinical indication); or iterative reconstruction. Contrast material: ISOVUE; Contrast volume: 75 ml; Contrast route: IV; COMPARISON: ABDPELW CT abdomen pelvis w con 08/30/2018 3:02 PM FINDINGS: Liver: Decreased density throughout the liver compatible with hepatic steatosis. Gallbladder and bile ducts: Cholecystectomy. Pancreas: Normal. No ductal dilation. Spleen: Normal. No splenomegaly. Adrenal glands: Normal. No mass. Kidneys and ureters: Normal. No hydronephrosis. Stomach and bowel: Unremarkable. No obstruction. No mucosal thickening. Appendix: No evidence of appendicitis. Intraperitoneal space: Unremarkable. No free air. No significant fluid collection. Vasculature: Unremarkable. No abdominal aortic aneurysm. Lymph nodes: Unremarkable. No enlarged lymph nodes. Urinary bladder: Unremarkable as visualized. Reproductive: Mild peripheral hemorrhage surrounding a 2 cm right ovarian cyst. Findings compatible with corpus luteum cyst. Bones/joints: Unremarkable. No acute fracture. Soft tissues: Fat filled umbilical hernia. IMPRESSION: 1. 2 cm right hemorrhagic corpus luteum cyst. 2. Hepatic steatosis.
[2021-09-16 10:02] LABS: Basophils # 0.2 K/mm3 (0-0.2); Basophils % 2.6 % (0.1-2.0); Eosinophils # 0.4 K/mm3 (0.0-0.4); Eosinophils % 4.8 % (0.1-12.0); Hematocrit 42.1 % (37.0-47.0); Hemoglobin 13.9 g/dL (12.2-16.2); Lymphocytes # 2.8 K/mm3 (0.7-4.5); Lymphocytes % 32.4 % (10-50); Mean Corpuscular HGB Conc 33.1 g/dL (31.8-35.4); Mean Corpuscular Hemoglobin 29.4 pg (27.0-31.2); Mean Corpuscular Volume 88.9 fl (81-99); Mean Platelet Volume 8.4 fl (7.4-10.4); Monocytes # 0.8 K/mm3 (0.1-1.0); Monocytes % 9.2 % (1.7-9.3); Neutrophils # 4.4 K/mm3 (1.8-7.8); Neutrophils % 51.1 % (37.0-80.0); Platelet Count 369 K/mm3 (142-424); Red Blood Count 4.74 M/mm3 (4.20-5.40); Red Cell Distribution Width 13.1 % (11.5-17.5); White Blood Count 8.5 K/mm3 (4.8-10.8)
--- NOTE | 2021-09-16 10:05 | PC.NURSE ---
patient is up to the bathroom, unhooked from vital signs and cardiac monitoring. Ambulated to bathroom without any assistance.
--- NOTE | 2021-09-16 10:06 | HMH.EDGENADL ---
ED Disposition Clinical Impression: Epigastric abdominal pain Disposition: Home, Self-Care Condition on Discharge: Good Instructions: DI for Abdominal Pain-Adult Additional Instructions: Moderate diet for the next day to 2 days with no greasy foods or alcohol. Stay hydrated and follow-up with your primary care. Referrals: Leah Florentino MD [Primary Care Provider] - Time of Disposition: 11:27 - Critical Care Critical Care Time: No Attestation: On 09/16/21, the high probability of a clinically significant, sudden or life threatening deterioration of the following system(s) required my full and direct attention, intervention and personal management. The time I documented below is in addition to time spent performing reported procedures but includes the following listed in this critical care notation. Medical Decision Making - Medical Records Medical records reviewed: Yes: I reviewed the patient's medical records. - Edd Inquiry Pt receiving controlled substance: No Vital Signs: 09/16/21 09:17 09/16/21 09:30 09/16/21 10:00 Temperature 98.0 F Temperature Source Oral Pulse Rate 75 71 Pulse Rate [Right Radial] 88 Respiratory Rate 14 21 17 Blood Pressure 106/78 L 109/77 L Blood Pressure [Right Arm] 120/83 Blood Pressure Mean 84 83 Blood Pressure Mean [Right Arm] 95 Blood Pressure Source [Right Arm] Automatic Cuff Blood Pressure Position [Right Arm] Sitting 02 Sat by Pulse Oximetry 98 96 97 Oxygen Delivery Method Room Air 09/16/21 10:31 Temperature Temperature Source Pulse Rate 79 Pulse Rate [Right Radial] Respiratory Rate 18 Blood Pressure 127/89 Blood Pressure [Right Arm] Blood Pressure Mean 96 Blood Pressure Mean [Right Arm] Blood Pressure Source [Right Arm] Blood Pressure Position [Right Arm] 02 Sat by Pulse Oximetry 97 Oxygen Delivery Method - Lab Data Lab Results 09/16/21 09:18: WBC 8.5, RBC 4.74, Hgb 13.9, Hct 42.1, MCV 88.9, MCH 29.4, MCHC 33.1, RDW 13.1, Plt Count 369, MPV 8.4, Neut % (Auto) 51.1, Lymph % (Auto) 32.4, [place] % (Auto) 9.2, Eos % (Auto) 4.8, Baso % (Auto) 2.6 H, Neut # (Auto) 4.4, Lymph # (Auto) 2.8, [place] # (Auto) 0.8, Eos # (Auto) 0.4, Baso # (Auto) 0.2 09/16/21 09:18: Sodium 138, Potassium 4.0, Chloride 107, Carbon Dioxide 24, Anion Gap 11.0, BUN 11, Creatinine 0.50 L, Estimated Creat Clear 182, Estimated GFR 148, Est GFR ( Amer) 179, Glucose 103 H, Calcium 8.8, Total Bilirubin 0.2, AST 29, ALT 33, Alkaline Phosphatase 80, Total Protein 7.1, Albumin 4.4, Globulin 2.7, Albumin/Globulin Ratio 1.6, Lipase 424 H 09/16/21 10:11: Urine Color Yellow, Urine Appearance Clear, Urine pH 5.0, Ur Specific [place] >= 1.030, Urine Protein Negative, Urine Glucose (UA) Negative, Urine Ketones Negative, Urine Blood Negative, Urine Nitrate Negative, Urine Bilirubin Negative, Urine Urobilinogen 0.2, Ur Leukocyte Esterase Negative, Urine RBC None, Urine WBC None, Ur Squamous Epith Cells Occasional, Urine Bacteria None 09/16/21 10:11: Urine HCG, Qual Negative Result diagrams: 09/16/21 09:18 09/16/21 09:18 Orders (Tests/Meds): ED MEDICATIONS Generic Name Dose Route Start Last Admin Trade Name Freq PRN Reason Stop Dose Admin Sodium Chloride 1,000 mls @ 999 mls/hr 09/16/21 11:15 Sod Chlor 0.9% 1000ml Bag IV 09/16/21 12:15 .Q1H1M ALVINA Discontinued Medications Generic Name Dose Route Start Last Admin Trade Name Freq PRN Reason Stop Dose Admin Belladonna Alkaloids 60 ml 09/16/21 09:40 09/16/21 10:07 Gi Cocktail 60ml Udc PO 09/16/21 09:41 60 ml ONCE ONE Administration Iopamidol 75 ml 09/16/21 10:48 09/16/21 10:49 Iopamidol-370 (76%);100ml Bottle IV 09/16/21 10:49 75 ml ONCE ONE Administration Ondansetron HCl 4 mg 09/16/21 10:26 09/16/21 10:27 Ondansetron 4mg/2ml Vial IV 09/16/21 10:27 4 mg ONCE ONE Administration Ondansetron HCl 4 mg 09/16/21 10:55 Ondansetron 4mg/2ml Vial IV 09/16/21 10:56 ONCE ON
--- NOTE | 2021-09-16 10:07 | PC.NURSE ---
Pt ambulated to bathroom at this time to provide urine sample
[2021-09-16 10:09] LABS: Chloride 107 mmol/L (98-107); Sodium 138 mmol/L (136-145)
[2021-09-16 10:11] LABS: Blood Urea Nitrogen 11 mg/dl (7-17); Creatinine Clearance Estimated 182 mL/min (50-200); Estimated Glomerular Filt Rate 148 ml/min (>60); GFR (African American) 179 ML/MIN (>60)
[2021-09-16 10:12] LABS: Alanine Aminotransferase 33 U/L (12-78); Albumin Level 4.4 g/dl (3.5-5.0); Albumin/Globulin Ratio 1.6 (1.1-1.8); Alkaline Phosphatase 80 U/L (38-126); Aspartate Amino Transferase 29 U/L (14-36); Bilirubin,Total 0.2 mg/dl (0.2-1.3); Calcium 8.8 mg/dl (8.4-10.2); Globulin 2.7 g/dL (1.3-3.2); Glucose 103 mg/dl (74-100); Lipase 424 U/L (23-300); Total Protein,Serum 7.1 g/dl (6.3-8.2)
--- NOTE | 2021-09-16 10:12 | PC.NURSE ---
patient back in bed after using the bathroom. ambulated back without any assistance. urine collected and sent to the lab. patient hooked back up to cardiac monitoring and vital signs. call light within reach.
[2021-09-16 10:16] LABS: Microscopic, Urine URINE MICROSCOPIC (MICROSCOPIC)
[2021-09-16 10:19] LABS: Appearance,Urine CLEAR (Clear); Bilirubin,Urine Negative (Negative); Blood, Urine Negative (Negative); Color,Urine YELLOW (Yellow); Glucose,Urine (UA) Negative (Negative); Ketones,Urine Negative (Negative); Leukocyte Esterase,Urine Negative (Negative); Nitrate,Urine Negative (Negative); Protein,Urine Negative (Negative); Specific Gravity, Urine >= 1.030 (1.005-1.030); Urobilinogen,Urine 0.2 EU/dl (0.2)
[2021-09-16 10:20] LABS: Urine Pregnancy, HCG Qual. Negative (Negative)
--- NOTE | 2021-09-16 10:25 | PC.NURSE ---
patient had call light on, stating that she is nauseous from the GI Cocktail. Emesis bag was given to patient, JOSÉ MIGUEL Hoffman and Dr. Cazares notified.
[2021-09-16 10:28] LABS: Carbon Dioxide 24 mmol/L (22.0-30.0)
--- NOTE | 2021-09-16 10:37 | PC.NURSE ---
patient over to CT Scan.
[2021-09-16 10:41] LABS: Squamous Epithelial Cell,Urine Occasional #/hpf (0-5)
--- NOTE | 2021-09-16 10:57 | PC.NURSE ---
patient back from CT at this time. Hooked back up to cardiac monitoring and vital signs. call light within reach.
--- NOTE | 2021-09-16 12:55 | PC.NURSE ---
PT C/O RED RAISED RASH WITH ITCHING X 3 DAYS TO HIPS. DENIES ANY NEW LOTIONS, SOAPS, DETERGENTS
== END 2021-09-16 13:52 | disposition home or self-care (01) ==
PROVIDERS: Emergency Provider Student in an Organized Health Care Education/Training Program; PCP Family Medicine
DX: R10.13 Epigastric pain (principal); R07.9 Chest pain, unspecified; N83.11 Corpus luteum cyst of right ovary; R21 Rash and other nonspecific skin eruption; R11.0 Nausea; F32.A Depression, unspecified; F17.210 Nicotine dependence, cigarettes, uncomplicated; Z79.51 Long term (current) use of inhaled steroids; Z79.1 Long term (current) use of non-steroidal anti-inflammatories (NSAID); Z79.899 Other long term (current) drug therapy; Z82.49 Family history of ischemic heart disease and other diseases of the circulatory system; Z83.438 Family history of other disorder of lipoprotein metabolism and other lipidemia
CPT/HCPCS: 74177; 80053; 81001; 81025; 83690; 85025; 93005; 96374; 96375; 99285; J2405; Q9967

== ENCOUNTER 2021-10-19 17:28 | Emergency (ER) | payer OTHER, SELFPAY ==
[2021-10-19 18:09] VITALS: BP 130/78; PULSE 97; RESP 18; TEMP 36.7; O2SAT 99; BMI 31.0
--- NOTE | 2021-10-19 18:12 | HMH.EDUTC ---
[facility] [place] Clinical Impression: Nummular dermatitis Disposition: Home, Self-Care Condition on Discharge: Good Instructions: DI for Atopic Dermatitis-Adult Additional Instructions: Use the medication as directed. Don't put the topical steroids (triamcinolone) on your face or your groin. Follow up with your regular doctor. GO TO THE ER FOR ANY WORSENING SYMPTOMS OR CONCERNS Prescriptions: Triamcinolone Acetonide 1 applicatio TP TIDP PRN 7 Days #1 gm PRN Reason: Itching Transmission Status: Received by [facility] Referrals: Provider,Referral, MD [Primary Care Provider] - Time of Disposition: 18:30 Medical Decision Making - Medical Records Medical records reviewed: No: I reviewed the patient's medical records. - Edd Inquiry Pt receiving controlled substance: No Vital Signs: 10/19/21 18:09 10/19/21 18:31 Temperature 98.1 F 98.1 F Temperature Source Oral Pulse Rate 97 H Pulse Rate [Left] 97 H Respiratory Rate 18 18 Blood Pressure 130/78 Blood Pressure [Right Arm] 130/78 Blood Pressure Mean [Right Arm] 95 02 Sat by Pulse Oximetry 99 Orders (Tests/Meds): ED MEDICATIONS Discontinued Medications Generic Name Dose Route Start Last Admin Trade Name Freq PRN Reason Stop Dose Admin Diphenhydramine HCl 25 mg 10/19/21 18:25 10/19/21 18:30 Diphenhydramine 50mg/Ml Vial IM 10/19/21 18:26 25 mg ONCE ONE Administration [facility] [place] - General Stated complaint: swelling of R hand (no Accident) Time Seen by Provider: 10/19/21 18:12 - History of Present Illness Provider Complaint: She has red itchy areas on her right hand, left forearm and right side of her chest for the past 2 days. She is unsure what caused this, but she thinks she is allergic to something. She has had similar reactions severa times over the past 6 months or so. She has an appointment with an visiting nurse coming up. - Related Data Home Medications Medication Instructions Recorded Confirmed dextroamphetamine-amphetamine ER 15 mg PO DAILY cap 10/17/21 10/17/21 15 mg 24hr capsule,extend release epinephrine 0.3 mg/0.3 mL 0.3 ml IM ONCE each 10/17/21 10/17/21 injection, auto-injector famotidine 40 mg tablet 40 mg PO DAILY tab 10/17/21 10/17/21 Previous Rx's Medication Instructions Recorded Ibuprofen [Ibuprofen 600mg Tab] 600 mg PO Q6HP PRN #20 tab 07/29/21 Ondansetron [Zofran 4mg ODT] 4 mg PO TIDP PRN #10 tab 07/29/21 Triamcinolone Acetonide 1 applicatio TP TIDP PRN 7 Days #1 10/19/21 gm Allergies Allergy/AdvReac Type Severity Reaction Status Date / Time No Known Allergies Allergy Verified 10/19/21 18:12 [facility] History - Hepatitis A Screen Attestation statement:: This patient has been screened for Hepatitis A risk factors. I have reviewed the patient's past medical history: Yes Medical History: Reports:: Depression Denies:: Cancer, Diabetes Mellitus Type 1, Diabetes Mellitus Type 2, Internal Pacemaker, MRSA, Seizures Other Medical History: Reports: Other. Denies: Blood Transfusion Reaction Laterality Cases: Bilateral: Tonsillectomy, Other Other Surgeries: Yes: No Previous Surgery, Other. No: Pacemaker Amputation: No Fractures: No - Social History Smoking Status: Current every day smoker Tobacco Type: cigarettes # Packs/Day (cigarettes): 1 Alcohol Intake: never Alcohol Intake Frequency:: a few times a month Substance Use Type: marijuana, former substance user Occupational Status: other Housing: house Household Members: significant other - Psychiatric History Pschychiatric History:: Reports:: Depression Family Hx:: Hyperlipidemia, Hypertension ROS Obtained: Yes All systems reviewed & no additional complaints - Constitutional Constitutional: Denies chills, Denies fever(s) - Eyes Eyes: Denies eye discharge - Musculoskeletal Musculoskeletal: Denies joint pain - Integumentary/Breasts Skin/Breast: Reports as per HPI Physical E
[2021-10-19 18:31] VITALS: BP 130/78; PULSE 97; RESP 18; TEMP 36.7
== END 2021-10-19 18:37 | disposition home or self-care (01) ==
PROVIDERS: Emergency Provider Nurse Practitioner Family
DX: L30.0 Nummular dermatitis (principal)
CPT/HCPCS: 96372; 99212; G0463

== ENCOUNTER 2022-09-11 13:51 | Emergency (ER) | payer OTHER, SELFPAY ==
[2022-09-11 13:52] VITALS: BP 109/80; PULSE 91; RESP 16; TEMP 36.9; O2SAT 97; BMI 33.2
--- NOTE | 2022-09-11 14:00 | XR_ITS ---
FINAL REPORT CLINICAL HISTORY: pain, no injury. FINDINGS: LEFT WRIST Three views demonstrate no acute fracture or dislocation. The visualized joint spaces are normally aligned. The soft tissues are unremarkable. IMPRESSION: No acute bony abnormality. Reviewed, Interpreted and Dictated by Carrillo Dumont MD Transcribed by Alfred Ramires Authenticated and [facility]
--- NOTE | 2022-09-11 14:50 | EXP.UTC ---
Discharge Plan Disposition Patient Disposition: Home, Self-Care Condition: Good Prescriptions Prescriptions: New methylprednisolone 4 mg Tablets,Dose Pack 4 mg PO DIRECTED Qty: 21 0RF No Action epinephrine 0.3 mg/0.3 mL auto-injector 0.3 ml IM ONCE famotidine 40 mg tablet 40 mg PO DAILY trazodone 150 mg tablet 150 mg PO HS PRN fluconazole [Diflucan] 150 mg tablet 150 mg PO ONCE Qty: 2 0RF Rx Instructions: may repeat second dose 72 hrs after first dose if symptoms persist terconazole 0.8 % cream 1 appful vaginal QHS 3 Days Qty: 20 0RF ibuprofen 600 MG tablet 600 mg PO Q6HP PRN (Reason: Moderate Pain) Qty: 20 0RF Referrals Follow up/Referrals: Willie Staley DO [Staff Physician] - See instructions oDrothy Rios APRN [Primary Care Provider] - See instructions Activity Restrictions/Add. Instructions Additional Instructions/Restrictions: Rest the extremity, Wear the soraya wrap for compression, Elevate the extremity as tolerated while you are resting. Take the medication as directed. Follow up with Dr. Staley (orthopedics). I put in a referral but you need to call his office and schedule an appointment. Follow up with your regular doctor. GO TO THE ER FOR ANY WORSENING SYMPTOMS Clinical Impressions Clinical Impression: Acute pain of right wrist, Ganglion cyst of dorsum of right wrist Stand Alone Forms Stand Alone Forms: Work/School Release Instructions Patient Instructions: Ganglion Cyst, Methylprednisolone, DI Ganglion Cyst Discharge ED Provider: Carlos Green [facility] [place] HPI General Stated complaint: LT wrist pain Mode of Arrival: Ambulatory Source of Information: Patient Limitations: No Limitations Time Seen by Provider: 09/11/22 14:43 Description of Symptoms (Recalled from Triage Doc. by RN): pt presents to [facility] c/o left wrist pain x 1 week. pt denies any known injury. HEENT Symptoms (Recalled from RN notes): No Resp Symptoms (Recalled from RN notes): No Skin Symptoms (Recalled from RN notes): No MS Symptoms (Recalled from RN notes): Yes Functional Status (Recalled from RN notes): na History of Present Illness Provider Complaint: She states that she has had a knot on the top of her left wrist for the past 1 week. She states that she has pain at the site with certain movements. She denies any injury. She denies any other joint pain or complaints. She describes the pain as sharp when it occurs. Her soil fertility specialist in that hand seems a little weak due to the pain of squeezing with that hand. The pain does not radiate anywhere. She rates the pain as 6/10 at its worst. Related Data Home Medications Medication Instructions Recorded Confirmed epinephrine 0.3 mg/0.3 mL 0.3 ml IM ONCE 10/17/21 04/12/22 injection, auto-injector famotidine 40 mg tablet 40 mg PO DAILY 10/17/21 04/12/22 trazodone 150 mg tablet 150 mg PO HS PRN 04/12/22 04/12/22 Previous Rx's Medication Instructions Recorded ibuprofen 600 mg tablet 600 mg PO Q6HP PRN Moderate Pain 07/29/21 #20 tabs fluconazole 150 mg tablet 150 mg PO ONCE #2 tabs 04/12/22 (Diflucan) terconazole 0.8 % vaginal cream 1 appful vaginal QHS 3 days #20 04/12/22 grams methylprednisolone 4 mg tablets in 4 mg PO DIRECTED #21 tabs 09/11/22 a dose pack Allergies Allergy/AdvReac Type Severity Reaction Status Date / Time No Known Allergies Allergy Verified 04/12/22 14:48 Worker's Comp Is this a Worker's Comp case?: No Is this an [facility] Worker's Comp?: No Is this a [facility] Worker's Comp?: No [facility] Disclaimer: The information contained in this section may have been updated after the patient was seen, as this information can be updated by other users. Surgical History H/O tubal ligation History of cholecystectomy Social History Smoking Status: Current every day smoker tobacco type: cigarettes
[2022-09-11 15:01] VITALS: BP 109/80; PULSE 91; RESP 16; TEMP 36.9; O2SAT 97
== END 2022-09-11 15:02 | disposition home or self-care (01) ==
PROVIDERS: Emergency Provider Nurse Practitioner Family; PCP Nurse Practitioner Family
DX: M25.532 Pain in left wrist; M67.432 Ganglion, left wrist; F17.210 Nicotine dependence, cigarettes, uncomplicated
CPT/HCPCS: 73110; 99212; 99214; G0463

== ENCOUNTER 2022-11-07 14:47 | Emergency (ER) | payer OTHER, SELFPAY ==
[2022-11-07 15:30] VITALS: BP 115/86; PULSE 86; RESP 18; TEMP 36.8; O2SAT 98; BMI 29.7
[2022-11-07 15:37] LABS: UTC Pregnancy Test, Urine Negative (Negative)
[2022-11-07 15:39] LABS: Microscopic, Urine URINE MICROSCOPIC (MICROSCOPIC)
--- NOTE | 2022-11-07 15:44 | EXP.UTC ---
Discharge Plan Disposition Patient Disposition: Home, Self-Care Condition: Good Prescriptions Prescriptions: No Action epinephrine 0.3 mg/0.3 mL auto-injector 0.3 ml IM ONCE famotidine 40 mg tablet 40 mg PO DAILY trazodone 150 mg tablet 150 mg PO HS PRN fluconazole [Diflucan] 150 mg tablet 150 mg PO ONCE Qty: 2 0RF Rx Instructions: may repeat second dose 72 hrs after first dose if symptoms persist terconazole 0.8 % cream 1 appful vaginal QHS 3 Days Qty: 20 0RF ibuprofen 600 MG tablet 600 mg PO Q6HP PRN (Reason: Moderate Pain) Qty: 20 0RF methylprednisolone 4 mg Tablets,Dose Pack 4 mg PO DIRECTED Qty: 21 0RF Referrals Follow up/Referrals: Dorothy Rios APRN [Primary Care Provider] - See instructions Activity Restrictions/Add. Instructions Additional Instructions/Restrictions: As urine dip shows only a trace of Leukocytes in the urine, we will wait for culture before ordering more antibiotics. Clinical Impressions Clinical Impression: Pelvic cramping Instructions Patient Instructions: DI for Urinary Tract Infection (UTI) Discharge ED Provider: Shadia Odell [facility] General Stated complaint: possible uti Mode of Arrival: Ambulatory Source of Information: Patient Limitations: No Limitations Time Seen by Provider: 11/07/22 15:44 Description of Symptoms (Recalled from Triage Doc. by RN): PATIENT C/O PELVIC PRESSURE, POSSIBLE UTI HEENT Symptoms (Recalled from RN notes): No Resp Symptoms (Recalled from RN notes): No Skin Symptoms (Recalled from RN notes): No MS Symptoms (Recalled from RN notes): No Functional Status (Recalled from RN notes): WNL History of Present Illness Provider Complaint: Pt relates that she has had lower abdominal pressure. She relates that she is currently on Flagyl and Doxycycline for H-pylori. She reports having C-Diff x3 last year. Related Data Home Medications Medication Instructions Recorded Confirmed epinephrine 0.3 mg/0.3 mL 0.3 ml IM ONCE 10/17/21 09/13/22 injection, auto-injector famotidine 40 mg tablet 40 mg PO DAILY 10/17/21 09/13/22 trazodone 150 mg tablet 150 mg PO HS PRN 04/12/22 09/13/22 Previous Rx's Medication Instructions Recorded ibuprofen 600 mg tablet 600 mg PO Q6HP PRN Moderate Pain 07/29/21 #20 tabs fluconazole 150 mg tablet 150 mg PO ONCE #2 tabs 04/12/22 (Diflucan) terconazole 0.8 % vaginal cream 1 appful vaginal QHS 3 days #20 04/12/22 grams methylprednisolone 4 mg tablets in 4 mg PO DIRECTED #21 tabs 09/11/22 a dose pack Allergies Allergy/AdvReac Type Severity Reaction Status Date / Time No Known Allergies Allergy Verified 09/13/22 09:04 Worker's Comp Is this a Worker's Comp case?: No PFSH PFS Disclaimer: The information contained in this section may have been updated after the patient was seen, as this information can be updated by other users. Surgical History H/O tubal ligation History of cholecystectomy Social History Smoking Status: Current every day smoker tobacco type: cigarettes packs per day: 1 second hand exposure: No alcohol intake: never substance use type: former substance user and marijuana current occupational status: other Travel in the last 8 weeks: None household members: significant other housing: house current occupation: [employer] current occupational exposures/hazards: No caffeine: Yes ROS Obtained: Yes All systems reviewed & no additional complaints except as documented Constitutional Constitutional: Reports system reviewed and no additional complaints, except as documented Eyes Eyes: Reports system reviewed and no additional complaints, except as documented ENT Ears, Nose, Mouth, and Throat: Reports system reviewed and no additional complaints, except as documented Cardiovascular Cardiovascular: Reports sys
[2022-11-07 15:51] LABS: Appearance,Urine CLEAR (Clear); Bilirubin,Urine Negative (Negative); Blood, Urine Negative (Negative); Color,Urine YELLOW (Yellow); Glucose,Urine (UA) Negative (Negative); Ketones,Urine Negative (Negative); Leukocyte Esterase,Urine TRACE (Negative); Nitrate,Urine Negative (Negative); Protein,Urine Negative (Negative); Urobilinogen,Urine 0.2 EU/dl (0.2)
[2022-11-07 16:04] LABS: Bacteria,Urine 1+ /lpf; WBC,Urine Occasional #/hpf (0-3)
[2022-11-07 16:08] VITALS: BP 115/86; PULSE 86; RESP 18; TEMP 36.8; O2SAT 98
== END 2022-11-07 16:13 | disposition home or self-care (01) ==
PROVIDERS: Emergency Provider Nurse Practitioner Family; PCP Nurse Practitioner Family
DX: R10.2 Pelvic and perineal pain (principal); F17.210 Nicotine dependence, cigarettes, uncomplicated
CPT/HCPCS: 81001; 81025; 99212; 99213; G0463

== ENCOUNTER 2023-02-13 08:39 | Emergency (ER) | payer OTHER, SELFPAY ==
[2023-02-13 09:00] VITALS: BP 131/91; PULSE 97; RESP 18; TEMP 36.8; O2SAT 98; BMI 32.8
--- NOTE | 2023-02-13 09:11 | EXP.UTC ---
Discharge Plan Disposition Patient Disposition: Home, Self-Care Condition: Good Prescriptions Prescriptions: New fluconazole 150 mg tablet 150 mg PO Q3D Qty: 2 0RF Rx Instructions: Take one tablet now and wait 72 hours (3 Days) and may repeat if you are still having symptoms No Action famotidine 40 mg tablet 40 mg PO DAILY esomeprazole magnesium 40 mg capsule,delayed release(DR/EC) 40 mg PO DAILY Patient Comments: TAKE 1 CAPSULE BY MOUTH ONCE DAILY Referrals Follow up/Referrals: Dorothy Rios APRN [Primary Care Provider] - See instructions Activity Restrictions/Add. Instructions Additional Instructions/Restrictions: *Increase fluids. Water not Soda or Tea Take medication as prescribed Follow up with your OBGYN or Family Doctor if no improvement Call your doctor office and make appointment for 48 hours (2 days from today) ?to follow up and get the results of your urine culture and further treatment Clinical Impressions Clinical Impression: Vaginal yeast infection Instructions Patient Instructions: DI for Vaginal Yeast Infection, Vaginal Yeast Infection Discharge ED Provider: Jennifer Oleary [facility] General Stated complaint: possible UTI Mode of Arrival: Ambulatory Source of Information: Patient Limitations: No Limitations Time Seen by Provider: 02/13/23 09:11 Description of Symptoms (Recalled from Triage Doc. by RN): PATIENT C/O PAINFUL URINATION SINCE YESTERDAY HEENT Symptoms (Recalled from RN notes): No Resp Symptoms (Recalled from RN notes): No Skin Symptoms (Recalled from RN notes): No MS Symptoms (Recalled from RN notes): No Functional Status (Recalled from RN notes): WNL History of Present Illness Provider Complaint: Patient states that she has been having burning and itchy like feeling in her vaginal area Thinks she may have a UTI or yeast infection States that she has been having it since yesterday so she came in today to get checked Related Data Home Medications Medication Instructions Recorded Confirmed famotidine 40 mg tablet 40 mg PO DAILY 10/17/21 02/13/23 esomeprazole magnesium 40 mg 40 mg PO DAILY 02/13/23 02/13/23 capsule,delayed release Previous Rx's Medication Instructions Recorded fluconazole 150 mg tablet 150 mg PO Q3D 2 doses #2 tabs 02/13/23 Allergies Allergy/AdvReac Type Severity Reaction Status Date / Time amoxicillin Allergy Verified 02/13/23 09:12 Worker's Comp Is this a Worker's Comp case?: No PFS PFSH Disclaimer: The information contained in this section may have been updated after the patient was seen, as this information can be updated by other users. Surgical History H/O tubal ligation History of cholecystectomy Social History Smoking Status: Current every day smoker tobacco type: cigarettes packs per day: 1 second hand exposure: No alcohol intake: never substance use type: former substance user and marijuana current occupational status: other Travel in the last 8 weeks: None household members: significant other housing: house current occupation: [employer] current occupational exposures/hazards: No caffeine: Yes ROS Obtained: Yes All systems reviewed & no additional complaints except as documented and Yes Systems reviewed as appropriate & no additional complaints except as documented Constitutional Constitutional: Reports system reviewed and no additional complaints, except as documented, Reports as per HPI, Denies body ache and Denies fever(s) ENT Ears, Nose, Mouth, and Throat: Reports system reviewed and no additional complaints, except as documented and Reports as per HPI Cardiovascular Cardiovascular: Reports system reviewed and no additional complaints, except as documented and Reports as per HPI Respiratory Respiratory: Reports system reviewed and no additional com
[2023-02-13 09:18] LABS: Apearance,Urine Clear (Clear); Bilirubin,Urine Negative (Negative); Blood, Urine Negative (Negative); Color,Urine Dark Yellow (Yellow); Glucose,Urine (UA) Negative (Negative); Ketones,Urine Negative (Negative); PH,Urine 5.5 (5.0-8.5); Protein,Urine Trace (Negative); UTC Leukocyte Esterase,Urine Negative (Negative); UTC Nitrate,Urine Negative (Negative); Urobilinogen,Urine 0.2 EU/dl (0.2)
[2023-02-13 09:26] VITALS: BP 131/91; PULSE 97; RESP 18; TEMP 36.8; O2SAT 98
== END 2023-02-13 09:32 | disposition home or self-care (01) ==
PROVIDERS: Emergency Provider Nurse Practitioner; PCP Nurse Practitioner Family
DX: B37.31 Acute candidiasis of vulva and vagina (principal); F17.210 Nicotine dependence, cigarettes, uncomplicated
CPT/HCPCS: 81003; 99212; 99213; G0463

== ENCOUNTER → 2023-02-28 23:20 | Outpatient (CLI) | payer OTHER, SELFPAY ==
[2023-02-28 18:45] LABS: Basophils % 0.5 % (0.1-2.0); Eosinophils # 0.2 K/mm3 (0.0-0.4); Eosinophils % 2.7 % (0.1-12.0); Hematocrit 42.3 % (37.0-47.0); Hemoglobin 14.3 g/dL (12.2-16.2); Lymphocytes # 2.9 K/mm3 (0.7-4.5); Lymphocytes % 33.7 % (10-50); Mean Corpuscular HGB Conc 33.8 g/dL (31.8-35.4); Mean Corpuscular Hemoglobin 30.6 pg (27.0-31.2); Mean Corpuscular Volume 90.7 fl (81-99); Mean Platelet Volume 9.2 fl (7.4-10.4); Monocytes # 0.5 K/mm3 (0.1-1.0); Monocytes % 5.5 % (1.7-9.3); Neutrophils # 4.9 K/mm3 (1.8-7.8); Neutrophils % 57.5 % (37.0-80.0); Platelet Count 320 K/mm3 (142-424); Red Blood Count 4.66 M/mm3 (4.20-5.40); White Blood Count 8.6 K/mm3 (4.8-10.8)
[2023-02-28 19:10] LABS: Chloride 108 mmol/L (98-107); Sodium 142 mmol/L (136-145)
[2023-02-28 19:11] LABS: Potassium 4.6 mmoL/L (3.5-5.1)
[2023-02-28 19:14] LABS: Anion Gap 14.6 mEq/L (5-15); Blood Urea Nitrogen 13 mg/dl (7-17); Calcium 8.7 mg/dl (8.4-10.2); Carbon Dioxide 24 mmol/L (22.0-30.0); Estimated Glomerular Filt Rate 100 ml/min (>60); GFR (African American) 121 ML/MIN (>60); Glucose 100 mg/dl (74-100)
[2023-02-28 19:17] LABS: 25-OH Vitamin D, Total 21.5 ng/mL (30-100)
[2023-02-28 21:23] LABS: Alanine Aminotransferase 40 U/L (12-78); Aspartate Amino Transferase 35 U/L (14-36)
[2023-02-28 21:24] LABS: Albumin Level 4.5 g/dl (3.5-5.0); Albumin/Globulin Ratio 1.8 (1.1-1.8); Bilirubin,Total 0.2 mg/dl (0.2-1.3); Chol/HDL Ratio 8.8 (1-3.5); Cholesterol 221 mg/dl (140-200); Globulin 2.5 g/dL (1.3-3.2); HDL Cholesterol 25 mg/dl (40-60)
[2023-02-28 21:32] LABS: Triglycerides 770 mg/dl (30-150)
[2023-02-28 21:36] LABS: Direct LDL Cholesterol 99.21 mg/dL (100-129)
[2023-02-28 22:01] LABS: Alkaline Phosphatase 82 U/L (38-126)
== END ==
PROVIDERS: PCP Physician Assistant; Visit Provider Physician Assistant
DX: Z76.89 Persons encountering health services in other specified circumstances (principal); E55.9 Vitamin D deficiency, unspecified; Z68.32 Body mass index [BMI] 32.0-32.9, adult
CPT/HCPCS: 80053; 80061; 82306; 84443; 85025

== ENCOUNTER → 2023-03-08 07:11 | Outpatient (CLI) | payer OTHER, SELFPAY ==
--- NOTE | 2023-03-08 | CA_ITS ---
APPROVED REPORT Exam: Exercise Treadmill Technologist: Bailee Lee, Ht: 5 ft 3 in Wt: 186 lbs BSA: 1.88 m2 HR: 69 bpm BP: 117/82 mmHg Rhythm: NSR Medical History Medications: Famotidine,,,,, Colestipol,,,,, Stress Test Details Test: Mao HR Resting HR: 78 bpm Max Heart Rate (APMHR): 192 bpm Max HR Achieved: 175 bpm Target HR (85% APMHR): 163 bpm % of APMHR: 91 Recovery HR: 98 bpm HR response to stress: Normal HR response to stress BP Resting BP: 115.0/92.0 mmHg Max BP: 138.0/79.0 mmHg Recovery BP: 121.0/80.0 mmHg BP response to stress: Normal blood pressure response to stress. ECG Resting ECG: NSR Stress ECG: < 0.[address] depression Arrhythmia: None Recovery ECG: Return to baseline within 3 minutes of recovery Recovery Arrhythmia: None Clinical Exercise duration: 08:30 min Highest Stage Achieved: III Exercise capacity: 10.1 METs Overall Exercise Capacity for Age: Average Stress ECG Conclusion The patient was able to exercise for a total of 8 minutes, 30 seconds. She achieved a total of 10.1 METS. She has average exercise capacity compared to age and sex matched peers. She has normal HR and BP response to exercise. Max HR: 171 % of PM: 89% Max BP: 132/84 METs: 10.1 Test stopped due to: SOA, Fatigue Symptoms: SOA with mild chest pressure. Arrhythmias/Ectopy: None. ST-T Changes: Normal ST response to exercise. Conclusion: Average exercise capacity. Mild chest pressure, otherwise normal GXT. Myoview images reported separately. Test Summary REST . . . . . . . Sitting REST . . . . . . . Sitting REST . . . . . . . Standing REST 04:52 0.0 0.0 78 . 115/ 92 . . Stage 1 01:00 10.0 1.7 106 . . . . Stage 1 02:00 10.0 1.7 119 . . . . Stage 1 03:00 10.0 1.7 126 . 124/ 76 . . Stage 2 01:00 12.0 2.5 133 . . . . Stage 2 02:00 12.0 2.5 144 . . . . Stage 2 03:00 12.0 2.5 146 . 132/ 84 . . Stage 3 01:00 14.0 3.4 165 . . . . Stage 3 . . . . . . . Cardiolite injected Stage 3 02:00 14.0 3.4 169 . . . . Stage 3 02:30 14.0 3.4 171 . . . Stop exercise at 08:30 RECOVERY 01:00 0.0 0.0 133 . . . . RECOVERY 02:00 0.0 0.0 112 . . . . RECOVERY 03:00 0.0 0.0 98 . 138/ 79 . . RECOVERY 04:00 0.0 0.0 94 . 126/ 78 . . RECOVERY 05:00 0.0 0.0 99 . 126/ 78 . . RECOVERY 05:43 0.0 0.0 93 . 121/ 80 . . Electronically signed by : Noni Blanca MD 03/11/2023 12:54:57
--- NOTE | 2023-03-08 07:11 | NM_ITS ---
APPROVED REPORT Exam: Nuclear Stress Test Indication: DYSRHYTHMIA, OBESITY, HYPERLIPIDEMIA, TOB USE, C.P., SOB, SYNCOPE, FATIGUE Patient Location: Outpatient Stress Tech: Bailee Hurt SC Tech:Crissy Maldonado, ARRT RT (R)(N)(M) Ht: 5 ft 4 in Wt: 180 lbs Bra Size: D HR: 78 bpm BP: 115/92 mmHg BSA: 1.87 m2 Rhythm: NSR TID: 1.50 BMI: 30.8 History: DYSRHYTHMIA, HYPERLIPIDEMIA, TOB USE, C.P., SOB, SYNCOPE, FATIGUE Procedure: Patient exercised on Mao protocol 8:30 minutes and sec, resting heart rate 78 bpm, resting blood pressure 115/92 mmHg, with exercise maximum heart rate achived was 175 bpm which is 91 % of the maximum predicted heart rate and blood pressure was 138/79 mmHg. Test was stopped due to FATIGUE. Patient denied any complaint of chest pain. Patient has Average exercise capacity, achieved 10.1 METs of workload on treadmill, the blood pressure response to exercise was Normal. Cardiac Stress and Resting SPECT Images: Cardiac Stress and Resting SPECT images were obtained using technetium 99m Myoview 29.5 mCi stress and 9.59 mCi at rest. Resting and stress imaging in supine and prone positions demonstrate no evidence of fixed or reversible perfusion defects. There is increased transient ischemic dilatation ratio (TID 1.50), suggestive of possible multivessel disease or balanced ischemia. Gated imaging demonstrates normal global and regional LV systolic function. LVEF is calculated at 56%. Conclusion: No evidence of fixed or reversible perfusion defects. Increased transient ischemic dilatation ratio (TID 1.50), suggestive of possible multivessel disease or balanced ischemia. Gated imaging demonstrates normal global and regional LV systolic function. LVEF is calculated at 56%. In the setting of markedly elevated TID, with otherwise normal study, average exercise capacity, and young age, and noninvasive approach to rule out multivessel disease is recommended with CCTA. Electronically signed by : Noni Blanca MD 03/11/2023 12:57:06
== END ==
LOC: RAD 07:11
PROVIDERS: PCP Physician Assistant; Visit Provider Physician Assistant
DX: R07.9 Chest pain, unspecified (principal)
CPT/HCPCS: 78452; 93017; 93018; A9502

== ENCOUNTER → 2023-03-14 10:03 | Outpatient (CLI) | payer OTHER, SELFPAY ==
--- NOTE | 2023-03-14 10:03 | CA_ITS ---
APPROVED REPORT EXAM: Comprehensive 2D, Doppler, and color-flow Echocardiogram Department Supervisor: Julianna Garza CRT Ht: 5 ft 3 in Wt: 186lbs BSA: 1.88 BP: 102/78 mmHg Indications: Chest Pain, smoker 2D Dimensions LA Volume 13.40 mL LA Volume Index 7.00 mL/m2 (M/F) 16-34 M-Mode Dimensions RVDd 2.14 cm (0.9-2.6) LA Diam 2.39 cm (1.9-4.0) LVDd 3.82 cm (3.5-5.7) LVDs 2.18 cm (3.5-5.7) IVSd 0.93 cm (0.6-1.1) PWd 0.71 cm (0.6-1.1) EF (Teich) 74.80% FS 42.90% EDV (Teich) 62.70 mL TAPSE 1.78 (<1.7) ESV (Teich) 15.80 mL LV Diastology E Decel Time 313 (160-240 msec) E/A Ratio 0.97 MED A' 6.80 cm/s LAT A' 6.50 cm/s Aortic Valve AI PHT 364.00 ms AO Peak GR. 4.70 mmHg Mitral Valve MV A Velocity 55.0 (40-130 cm/s) E/A Ratio 0.97 Pulmonary Valve PV Peak Velocity 116.0 (50-150 cm/s) Tricuspid Valve TR P. Velocity 175.00 cm/s RAP Estimate 10.00 mmHg RVSP 22.30 mmHg Left Ventricle The left ventricle is normal size. The left ventricular systolic function is normal. The left ventricular ejection fraction is within the normal range. There is normal left ventricular wall thickness. The left ventricular diastolic function is normal. LVEF is 55%. Right Ventricle The right ventricle is normal size. The right ventricular systolic function is normal. Atria The left atrium size is normal. The right atrium size is normal. There is no Doppler evidence of interatrial shunt. Aortic Valve The aortic valve opens well. There is no aortic valvular stenosis. Mild aortic regurgitation. Mitral Valve The mitral valve is normal in structure. No evidence of mitral valve stenosis. There is no mitral valve regurgitation noted. Tricuspid Valve The tricuspid valve leaflets are thin and pliable. Trace tricuspid regurgitation. There is insufficient TR jet to estimate RVSP. Pulmonic Valve The pulmonary valve is normal in structure. Trace pulmonic regurgitation. Great Vessels The aortic root is normal in size. The ascending aorta is normal in size. IVC is normal in size and collapses >50% with inspiration. Pericardium There is no pericardial effusion. Other Information Study Quality: Adequate Conclusion Normal biventricular systolic function. Mild AI. Electronically signed by : Noni Blanca MD 03/19/2023 11:18:51
== END ==
PROVIDERS: PCP Physician Assistant; Visit Provider Physician Assistant
DX: R07.9 Chest pain, unspecified (principal)
CPT/HCPCS: 93306

== ENCOUNTER → 2023-03-19 11:41 | Outpatient (CLI) | payer OTHER, SELFPAY | LOC: RT 11:42 | PROVIDERS: PCP Physician Assistant; Visit Provider Nurse Practitioner Family | DX: R06.00 Dyspnea, unspecified (principal); R07.9 Chest pain, unspecified; R42 Dizziness and giddiness; R53.83 Other fatigue; R55 Syncope and collapse; R60.0 Localized edema; R94.30 Abnormal result of cardiovascular function study, unspecified; R94.31 Abnormal electrocardiogram [ECG] [EKG] | CPT/HCPCS: 93270 ==

== ENCOUNTER → 2023-03-21 10:34 | Outpatient (CLI) | payer OTHER, SELFPAY ==
[2023-03-21 11:46] LABS: Alanine Aminotransferase 42 U/L (12-78); Aspartate Amino Transferase 35 U/L (14-36); Bilirubin,Unconjugated 0.1 mg/dL (0.0-1.1)
[2023-03-21 11:47] LABS: Albumin Level 4.5 g/dl (3.5-5.0); Alkaline Phosphatase 65 U/L (38-126); Bilirubin,Direct 0.3 mg/dl (0.0-0.4); Bilirubin,Indirect 0.1 mg/dL (0.0-0.9); Bilirubin,Total 0.4 mg/dl (0.2-1.3); Chol/HDL Ratio 5.6 (1-3.5); Cholesterol 213 mg/dl (140-200); HDL Cholesterol 38 mg/dl (40-60); Triglycerides 223 mg/dl (30-150); VLDL Cholesterol 45 mg/dL (0-40)
[2023-03-21 11:49] LABS: Hemoglobin A1C 5.4 % (4.0-6.0)
[2023-03-21 11:58] LABS: Direct LDL Cholesterol 120.57 mg/dL (100-129)
== END ==
PROVIDERS: PCP Physician Assistant; Visit Provider Nurse Practitioner Family
DX: E78.1 Pure hyperglyceridemia (principal); E78.5 Hyperlipidemia, unspecified; R06.00 Dyspnea, unspecified; R07.9 Chest pain, unspecified; R42 Dizziness and giddiness; R53.83 Other fatigue; R55 Syncope and collapse; R60.0 Localized edema; R94.30 Abnormal result of cardiovascular function study, unspecified; R94.31 Abnormal electrocardiogram [ECG] [EKG]
CPT/HCPCS: 36415; 80061; 80076; 83036

== ENCOUNTER 2023-04-17 09:43 | Outpatient (CLI) | payer OTHER, SELFPAY ==
[2023-04-17] VITALS (7 sets, daily range): BP systolic 106–118; BP diastolic 45–89; PULSE 65–83; RESP 18; TEMP 36.3; O2SAT 97–98; BMI 33.0
--- NOTE | 2023-04-17 09:44 | CT_ITS ---
APPROVED REPORT On Site Nurse: CLINICAL INDICATION Chest Pain TECHNIQUE Image Acquisition: A 128 slice MDCT scanner ([employer]) was used for data acquisition. A noncontrast coronary calcium scan was performed. A CT attenuation threshold of 130 Hounsfield units (HU) was used for the detection of calcium in contiguous voxels of 1 sq mm in area to be counted as individual lesions. Bolus tracking in the ascending aorta with a threshold of 180 HU was performed. Immediately afterwards, ECG synchronized cardiac CT was then performed from the cardiac base to apex using retrospective gating with ECG tube current modulation. A total of 85 mL of Isovue 370 mg/mL contrast medium was administered at 5 mL/sec followed by a saline flush using a biphasic injection protocol. A tube voltage of 120 KVp was used. The patient received the following medications prior to the cardiac CT. 100 mg of oral metoprolol 15 mg of intravenous metoprolol 0.4 mg of sublingual nitroglycerin The average heart rate at the time of acquisition was 60 bpm and regular. Image Reconstruction Transaxial images were reconstructed at 0.67 mm slide thickness. Data was reviewed interactively on an advanced workstation capable of 2 and 3-dimensional displays in all conventional reconstruction formats, including multiplanar reformations, maximum intensity projections, curved multiplanar reformations, and volume rendered reconstructions. When applicable, selected routine images describing the relevant coronary anatomy and pathology were saved and sent to PACS. Complications None Technical Quality Overall image quality was good. Coronary artery opacification was adequate. Total DLP (Dose-Length Product) is 1108.9 mGy-cm. The reported value represents the total of one or more individual components during the CT acquisition of this date and at this time, and as such, the same value may appear in more than one CT report depending on the interpreting/reporting physicians. COMPARISON None FINDINGS CT Coronary Calcium Scoring LMA (Left Main Artery) = 0 LAD (Left Anterior Descending) = 0 LCX (Left Coronary Circumflex) = 0 RCA (Right Coronary Artery) = 0 Total Calcium Score = 0 using the AJ-130 method. The interpretation of the calcium heart score is based on the following continuum*: 0 = no calcified plaque detected (risk of coronary artery disease is very low ??? less than 5%) 1-10 = calcium detected in extremely minimal levels (risk of coronary diseases is still low ??? less than 10%) 11-100 = mild levels of plaque detected with certainty (mild or minimal narrowing of heart arteries is likely) 101-400 = definite,at least moderate levels of plaque detected (relatively high risk of a heart attack within 3-5 years) >401-999 = extensive levels of plaque detected (high risk of heart attack, high levels of vascular disease are present, high likelihood of at least one significant coronary narrowing) *The calcium heart score quantifies the burden of coronary calcification/plaque in the coronary arteries. The calcium heart score is not able to evaluate the presence or burden of non-calcified (i.e. soft) plaque. There is no identifiable calcification in the aortic valve, mitral annulus or mitral valve, pericardium, or myocardium. Coronary CT Angiography The coronary arterial system is right dominant. Quantitative Stenosis Grading: Left Main (LM): The left main originates normally from the left sinus of Valsalva. The LM bifurcates into the left anterior descending artery and left circumflex artery. The LM is patent with no evidence of atherosclerosis. Left Anterior Descending (LAD) and Diagonal Branches: The LAD gives off 2 diagonal branch(es). The LAD and its branches are patent with no evidence of atherosclerosis. There is no evidence of LAD bridge. Left Circumflex (LCX) and Obtuse Marginals (OM): The LCX gives off 1 Obtuse Marginal (OM) branch. The LCX and its branches are patent with no evidence of atherosclerosis. Right Coronary Artery (RCA): The RCA originates normally from the right sinus of Valsalva. The RCA gives off a posterior descending artery (PDA) and posterolateral (PL) branches. The RCA and its branches are patent with no evidence of atherosclerosis. Non-Coronary Cardiac Findings: Analysis of the left ventricular (LV) structure and function was performed after 3-D reconstruction of the LV from axial images, with user-corrected automatic contouring for assessment of LV volumes and user-defined reconstruction from oblique planes for measurement of 3-D cardiac structure and function. LVEDV: 135 mL LVESV: 66 mL SV: 69 mL LVEF: 51% -The left ventricle is normal in size with normal left ventricular systolic function. -Incomplete opacification of the left atrial appendage (filling defect vs. incomplete contrast opacification distally). Two right pulmonary veins and two left pulmonary veins drain normally into the left atrium. -No pericardial thickening or calcification. -Central and branch pulmonary arteries in the [id number] are unremarkable. -Thoracic aorta within the visualized thoracic aortic-branches in the [id number] is unremarkable. Extracardiac Structures No significant extra-cardiac findings. IMPRESSION -No coronary calcification with an Agatston score = 0 using the AJ-130 method. -No evidence of significant flow-limiting atherosclerosis of the coronary arteries. -No coronary anomalies are present. -CAD-RADS 0. Management recommendations per ACC/AHA guidelines*, as clinically appropriate. -No significant non-coronary cardiac findings in the visualized segments of the chest. *Recommendations: CAD RADS 0: Reassurance. Consider non-atherosclerotic causes of chest pain. CAD RADS 1: Consider non-atherosclerotic causes of chest pain. Consider preventive therapy and risk factor modification. CAD RADS 2: Consider non-atherosclerotic causes of chest pain. Consider preventive therapy and risk factor modification, particularly for patients with nonobstructive plaque in multiple segments. CAD RADS 3: Consider further functional testing. Consider symptom-guided anti-ischemic and preventive pharmacotherapy as well as risk factor modification per published guideline statements. CAD RADS 4A: Consider further functional testing or invasive coronary angiography with revascularization per published guideline statements. Consider symptom-guided anti-ischemic and preventive pharmacotherapy as well as risk factor modification per published guideline statements. CAD RADS 4B: Invasive coronary angiography recommended with revascularization per published guideline statements. Consider symptom-guided anti-ischemic and preventive pharmacotherapy as well as risk factor modification per published guideline statements. CAD RADS 5: Consider invasive angiography and/or viability assessment with revascularization per published guideline statements. Consider symptom-guided anti-ischemic and preventive pharmacotherapy as well as risk factor modification per published guideline statements. CRITICAL RESULT None COMMUNICATION Per this written report The coronary and cardiac findings of this CCTA were reviewed, reported, and signed by Luis Blanca MD ([employer]) Conclusion Electronically signed by : Noni Blanca MD 04/22/2023 17:52:44
[2023-04-17] MEDS: METOPROLOL TARTRATE 50MG TABLET 100 MG PO (10:47)
[2023-04-17 10:58] LABS: Blood Urea Nitrogen 11 mg/dl (7-17); Calcium 8.7 mg/dl (8.4-10.2); Carbon Dioxide 25 mmol/L (22.0-30.0); Chloride 103 mmol/L (98-107); Creatinine Clearance Estimated 150 mL/min (50-200); Estimated Glomerular Filt Rate 100 ml/min (>60); GFR (African American) 121 ML/MIN (>60); Glucose 97 mg/dl (74-100); Sodium 135 mmol/L (136-145)
[2023-04-17] MEDS: METOPROLOL TARTRATE 5MG/5ML VIAL 5 MG IV ×3 (11:31→12:05)
[2023-04-17 11:38] LABS: HCG Qualitative, Serum Negative (Negative)
[2023-04-17] MEDS: NITROGLYCERIN 0.4MG SL TABLET 0.400000000000000022 MG SL (12:05)
[2023-04-17] MEDS: SODIUM CHLORIDE 0.9% 10ML SYR (RAD ONLY) 10 ML IV (12:28)
[2023-04-17] MEDS: 0.9 % SODIUM CHLORIDE 50 ML VIAL IV (12:28)
[2023-04-17] MEDS: IOPAMIDOL-370 (76%);100ML BOTTLE 85 ML IV (12:28)
== END 2023-04-17 23:59 | disposition home or self-care (01) ==
PROVIDERS: PCP Physician Assistant; Visit Provider Nurse Practitioner Family
DX: R06.02 Shortness of breath (principal); R07.9 Chest pain, unspecified; E78.2 Mixed hyperlipidemia; R94.31 Abnormal electrocardiogram [ECG] [EKG]; R94.39 Abnormal result of other cardiovascular function study
CPT/HCPCS: 75571; 75574; 80048; 84703; Q9967

== ENCOUNTER 2023-09-10 11:48 | Outpatient (CLI) | payer OTHER, SELFPAY ==
[2023-09-10 13:12] LABS: Free Thyroxine Index 2.1 ug/dL (5.93-13.13); T4 (Thyroxine) 6.8 ug/dl (5.53-11.0); Triiodothryronine (T3) Uptake 31 % (23.5-40.5)
[2023-09-10 13:26] LABS: Thyroid Stimulating Hormone 2.71 uIU/mL (0.465-4.68)
[2023-09-11 08:28] LABS: FSH 3.8 mIU/mL (.); Prolactin 8.6 ng/mL (4.8-33.4)
== END 2023-09-10 23:59 | disposition home or self-care (01) ==
LOC: LAB 11:49
PROVIDERS: PCP Family Medicine; Visit Provider Nurse Practitioner Obstetrics & Gynecology
DX: N91.2 Amenorrhea, unspecified (principal)
CPT/HCPCS: 36415; 82626; 83001; 83002; 84146; 84436; 84443; 84479

== ENCOUNTER 2023-09-12 10:19 | Outpatient (CLI) | payer OTHER, SELFPAY ==
--- NOTE | 2023-09-12 10:20 | US_ITS ---
PROCEDURE: US TRANSVAGINAL CLINICAL INDICATION: irregular periods COMPARISON: No exams were available for comparison FINDINGS: Transvaginal sonographic images of the pelvis were obtained. UTERUS: 8.9cm x 4.8 cmx 4.1cm anteverted with a combined endometrial thickness of 5.1mm. LEFT OVARY: 3.7 cmx1.7 cmx1.8cm with a volume of 6ml. There are multiple small follicles within the left ovary. The largest measures 0.85 cm. The ovary appears polycystic. RIGHT OVARY: 3.8 cmx 3.1cmx 1.9 cm with a volume of 11.6ml. There are multiple small peripheral follicles within the right ovary. It appears polycystic. Both ovaries are seen and appear polycystic. Doppler flow to both ovaries are seen. There is no fluid in the cul-de-sac. IMPRESSION: 1. Anteverted uterus normal in shape and size. The endometrium is thin measuring 5.1 mm. 2. Both ovaries are seen and appear polycystic. 3. No fluid in the cul-de-sac. Dictated by: Rudolph Torres MD 09/12/2023 15:10 Rudolph Torres MD in [place] 09/12/2023 15:10
== END 2023-09-12 23:59 | disposition home or self-care (01) ==
LOC: RAD 10:19
PROVIDERS: PCP Physician Assistant; Visit Provider Nurse Practitioner Obstetrics & Gynecology
DX: N92.6 Irregular menstruation, unspecified (principal)
CPT/HCPCS: 76830

== ENCOUNTER 2023-10-05 00:05 | Emergency (ER) | payer OTHER, SELFPAY ==
[2023-10-05 00:08] VITALS: BP 133/93; PULSE 96; RESP 18; TEMP 36.8; O2SAT 96; BMI 37.8
--- NOTE | 2023-10-05 00:17 | [facility].EDGENADL ---
Discharge Plan Disposition Patient Disposition: Home, Self-Care Prescriptions Prescriptions: No Action omeprazole 40 mg capsule,delayed release(DR/EC) 40 mg PO DAILY terconazole 0.8 % cream 1 appful vaginal HS 3 Days Qty: 20 0RF Rx Instructions: Patient is to use this medication for itchy areas under breast terconazole 0.8 % cream 1 appful vaginal HS 3 Days Qty: 20 0RF Referrals Follow up/Referrals: Dorothy Rios APRN [Primary Care Provider] - See instructions Activity Restrictions/Add. 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 Recommend that you follow-up with your PCP for further testing, specifically complement levels. Please return emergency department if you develop any swelling in the airway. Clinical Impressions Clinical Impression: Angioedema Discharge ED Provider: Diego Hernández General Adult HPI General Chief complaint: PAIN Stated complaint: left hand swollen,unk cause,history of swelling Time Seen by Provider: 10/05/23 00:17 History of Present Illness HPI narrative: 28-year-old female presents with acute on chronic symptoms of swelling. She reports it started a couple of years ago. Random parts of her body will begin to swell, become red, painful. It is usually not itchy. She presents today because she developed symptoms in her right index finger a couple of days ago, swelling is also moving towards the middle finger. She reports that he has seen approximately 12 physicians for this and has never gotten a satisfactory diagnosis. She has done allergy testing, imaging and other things but it is unclear what the underlying cause is. She reports no fever or systemic symptoms. She denies any airway involvement this time. Related Data Home Medications Medication Instructions Recorded Confirmed omeprazole 40 mg capsule,delayed 40 mg PO DAILY 05/21/23 09/10/23 release Previous Rx's Medication Instructions Recorded terconazole 0.8 % vaginal cream 1 appful vaginal HS 3 days #20 05/27/23 grams terconazole 0.8 % vaginal cream 1 appful vaginal HS 3 days #20 05/30/23 grams Allergies Allergy/AdvReac Type Severity Reaction Status Date / Time amoxicillin Allergy Verified 09/10/23 09:43 [facility] Disclaimer: The information contained in this section may have been updated after the patient was seen, as this information can be updated by other users. Medical History Hypertriglyceridemia Abnormal result of cardiovascular function study H. 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 History of tonsillectomy Status post myringotomy with tube placement of both ears H/O tubal ligation History of cholecystectomy Family History Other No significant family history Social History Smoking Status: Current every day smoker tobacco type: cigarettes packs per day: 1 second hand exposure: No alcohol intake: never substance use type: former substance user and marijuana current occupational status: student and other Travel in the last 8 weeks: None household members: significant other housing: house current occupation: [employer] current occupational exposures/hazards: No caffeine: Yes ROS Obtained: Yes All systems reviewed & no additional complaints except as documented Physical Exam General General appearance: alert and in no apparent distress Head Head exam: atraumatic and normocephalic Eye Eye exam: Present normal appearance, PERRL and EOMI ENT ENT exam: Present normal oropharynx and normal external ear exam Neck Neck exam: Present normal inspection and full ROM Chest Chest inspection: Present normal inspection and symmetric chest wall rise; Absent tenderness Respiratory Respiratory exam: Present normal lung sounds bilaterally; Absent respiratory distress Cardiovascular Cardiovascular exam: Present regular rate and normal rhythm Abdominal Exam Abdominal exam: Present soft; Absent distention, tenderness or guarding Extremities Exam Extremities exam: Present other (Left hand: Erythema and swelling of the left index finger); Absent edema or joint swelling Back Exam Back exam: Present normal inspection; Absent tenderness Neurological Exam Neurological exam: Present alert and oriented X3; Absent motor sensory deficit Psychiatric Psychiatric exam: Present normal affect and normal mood Skin Skin exam: Present warm, dry and normal color Lymphatic Lymphatic Findings: no adenopathy Medical Decision Making Medical Records Medical records reviewed: Yes I reviewed the patient's medical records. Edd Inquiry Pt receiving controlled substance: No Edd was queried for this patient: No Vital Signs: 10/05/23 00:08 10/05/23 01:10 Temperature 98.3 F 98.3 F Temperature Source Oral Oral Pulse Rate 91 H Pulse Rate [Right Brachial] 96 H Respiratory Rate 18 16 Blood Pressure 129/81 Blood Pressure [Right Arm] 133/93 H Blood Pressure Mean [Right Arm] 106 02 Sat by Pulse Oximetry 96 Oxygen Delivery Method Room Air Lab Data Lab results reviewed: Yes I reviewed the patient's lab results. Medical Decision Narrative: 28-year-old female with history as documented above presents with pain and swelling in her right finger. No reported trauma or injury.. History was obtained interactive discussion with patient, chart review. On arrival, patient is [afebrile, hemodynamically stable, satting appropriately, alert, oriented x4, GCS 15], moving all extremities spontaneously. Full physical exam performed and significant for mild swelling and redness with some tenderness of the right index finger and middle finger. Differential includes but is not limited to hereditary angioedema, acquired angioedema, allergy, anaphylaxis, autoimmune condition, infection, trauma, dactylitis. 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 She does not know half of her biologic family so it is possible that someone in her family has had it without her knowing. As far she knows she has never been been tested for this issue. There are other possible etiologies. At this time, there is no evidence of emergent pathology. I had extensive discussion with patient regarding her presentation. We discussed TXA as a possible therapy. I encouraged her to follow-up with her PCP soon as possible for complement testing and further assessment. She was given instructions regarding return precautions. Procedures Risk/Benefits of Procedure(s) Were Explained: Yes Critical Care Critical Care Time Critical Care Time: No
[2023-10-05 01:10] VITALS: BP 129/81; PULSE 91; RESP 16; TEMP 36.8; O2SAT 98
== END 2023-10-05 01:11 | disposition home or self-care (01) ==
PROVIDERS: Emergency Provider Emergency Medicine; PCP Nurse Practitioner Family
DX: T78.3XXA Angioneurotic edema, initial encounter (principal); F17.210 Nicotine dependence, cigarettes, uncomplicated; K21.9 Gastro-esophageal reflux disease without esophagitis; E78.1 Pure hyperglyceridemia
CPT/HCPCS: 99282

== ENCOUNTER 2023-10-22 15:25 | Outpatient (CLI) | payer OTHER, SELFPAY ==
[2023-10-22 15:28] LABS: MANUAL DIFFERENTIAL MANUAL DIFFERENTIAL (MANUAL DIFF); Microscopic, Urine URINE MICROSCOPIC (MICROSCOPIC)
[2023-10-22 15:58] LABS: Basophils % 0.5 % (0.1-2.0); Eosinophils # 0.3 K/mm3 (0.0-0.4); Eosinophils % 3.4 % (0.1-12.0); Hematocrit 40.1 % (37.0-47.0); Hemoglobin 13.5 g/dL (12.2-16.2); Lymphocytes # 2.8 K/mm3 (0.7-4.5); Lymphocytes % 34.5 % (10-50); Mean Corpuscular HGB Conc 33.6 g/dL (31.8-35.4); Mean Corpuscular Hemoglobin 29.7 pg (27.0-31.2); Mean Corpuscular Volume 88.5 fl (81-99); Mean Platelet Volume 9.2 fl (7.4-10.4); Monocytes # 0.4 K/mm3 (0.1-1.0); Monocytes % 4.7 % (1.7-9.3); Neutrophils # 4.6 K/mm3 (1.8-7.8); Neutrophils % 56.9 % (37.0-80.0); Platelet Count 330 K/mm3 (142-424); Red Blood Count 4.53 M/mm3 (4.20-5.40); Red Cell Distribution Width 13.2 % (11.5-17.5); White Blood Count 8.1 K/mm3 (4.8-10.8)
[2023-10-22 16:10] LABS: Chloride 109 mmol/L (98-107); Sodium 140 mmol/L (136-145)
[2023-10-22 16:11] LABS: Potassium 4.4 mmoL/L (3.5-5.1)
[2023-10-22 16:13] LABS: Alanine Aminotransferase 38 U/L (12-78); Albumin Level 4.4 g/dl (3.5-5.0); Albumin/Globulin Ratio 1.8 (1.1-1.8); Alkaline Phosphatase 74 U/L (38-126); Anion Gap 11.4 mEq/L (5-15); Aspartate Amino Transferase 32 U/L (14-36); Bilirubin,Total 0.2 mg/dl (0.2-1.3); Blood Urea Nitrogen 14 mg/dl (7-17); Carbon Dioxide 24 mmol/L (22.0-30.0); Estimated Glomerular Filt Rate 99 ml/min (>60); GFR (African American) 120 ML/MIN (>60); Globulin 2.5 g/dL (1.3-3.2); Total Protein,Serum 6.9 g/dl (6.3-8.2)
[2023-10-22 16:14] LABS: Calcium 9.6 mg/dl (8.4-10.2); Glucose 103 mg/dl (74-100)
[2023-10-22 16:15] LABS: Appearance,Urine CLEAR (Clear); Bilirubin,Urine Negative (Negative); Blood, Urine 2+ (Negative); Color,Urine YELLOW (Yellow); Glucose,Urine (UA) Negative (Negative); Ketones,Urine Negative (Negative); Leukocyte Esterase,Urine Negative (Negative); Nitrate,Urine Negative (Negative); Protein,Urine Negative (Negative); Specific Gravity, Urine >= 1.030 (1.005-1.030); Urobilinogen,Urine 0.2 EU/dl (0.2)
[2023-10-22 16:29] LABS: Creatinine,Urine Random 177 mg/dL (Not Estab.)
[2023-10-22 16:32] LABS: Microalbumin/Creatinine Ratio 6.2
[2023-10-22 18:09] LABS: RBC,Urine Occasional #/hpf (0-3)
[2023-10-22 19:38] LABS: Eosinophils % 3 % (0-3); Lymphocytes % 32 % (10-50); Monocytes % 6 % (2-9); Neutrophils % 59 % (42-76); Platelet Estimate Normal; RBC Morphology Normal; Total Cells Counted 100
[2023-10-23 09:16] LABS: Complement C3 195 mg/dL (82-167)
[2023-10-23 13:33] LABS: Anti-Centromere B Antibodies <0.2 AI (0.0-0.9); Anti-DNA (DS) Ab Qn 3 IU/mL (0-9); Anti-Jo-1 <0.2 AI (0.0-0.9); Anti-Smith Antibody <0.2 AI (0.0-0.9); Antichromatin Antibodies <0.2 AI (0.0-0.9); Antiscleroderma-70 Antibodies <0.2 AI (0.0-0.9); RNP Antibodies 0.2 AI (0.0-0.9); Sjogren's Anti-SS-A <0.2 AI (0.0-0.9); Sjogren's Anti-SS-B <0.2 AI (0.0-0.9)
[2023-10-24 19:15] LABS: Albumin, U 33.4 % (.); Alpha-1-Globulin, U 1.8 % (.); Alpha-2-Globulin, U 19.6 % (.); Beta Globulin, U 31.7 % (.); Gamma Globulin, U 13.4 % (.); M-Spike, % Not Observed % (Not Observed); Protein,Total,Urine 12.3 mg/dL (Not Estab.)
[2023-10-30 13:00] LABS: Complement C1q, Quantitative 8.9 mg/dL (10.3-20.5)
[2023-12-06 10:05] LABS: PDF: SCANNED IMAGE
== END 2023-10-22 23:59 | disposition home or self-care (01) ==
LOC: LAB 15:25
PROVIDERS: PCP Physician Assistant; Visit Provider Physician Assistant
DX: T78.3XXA Angioneurotic edema, initial encounter (principal)
CPT/HCPCS: 36415; 80053; 81001; 82043; 82570; 84156; 84166; 85007; 85014; 85018; 85048; 85049; 86160; 86161; 86225; 86235

== ENCOUNTER 2024-03-22 18:01 | Emergency (ER) | payer OTHER, SELFPAY ==
[2024-03-22 18:25] VITALS: BP 136/86; PULSE 91; RESP 18; TEMP 36.8; O2SAT 98; BMI 31.1
[2024-03-22 18:35] LABS: Color,Urine Dark Yellow (Yellow)
[2024-03-22 18:36] LABS: Apearance,Urine Cloudy (Clear); Bilirubin,Urine 1+ (Negative); Blood, Urine Negative (Negative); Glucose,Urine (UA) Negative (Negative); Ketones,Urine TRACE (Negative); Protein,Urine Trace (Negative); UTC Leukocyte Esterase,Urine Negative (Negative); UTC Nitrate,Urine Negative (Negative); Urobilinogen,Urine 0.2 EU/dl (0.2)
--- NOTE | 2024-03-22 18:48 | EXP.UTC ---
Discharge Plan Disposition Patient Disposition: Home, Self-Care Condition: Good Prescriptions Prescriptions: New fluconazole [Diflucan] 100 mg tablet 100 mg PO DAILY Qty: 1 1RF Rx Instructions: 1 tab now may repeat after 3 days if symptoms not improved. No Action norgestimate-ethinyl estradiol [Sprintec (28)] 0.25-35 mg-mcg tablet 1 tab PO DAILY Patient Comments: TAKE 1 TABLET BY MOUTH ONCE DAILY trazodone 50 mg tablet 50 mg PO HS Patient Comments: TAKE 1 TABLET BY MOUTH ONCE DAILY AT NIGHT Referrals Follow up/Referrals: Provider,Referral, MD [Primary Care Provider] - See instructions Clinical Impressions Clinical Impression: Vaginal yeast infection Instructions Patient Instructions: DI for Vaginal Yeast Infection Print Language Print Language: Tamazight Discharge ED Provider: Holden ([facility])Morgan [facility] HPI General Stated complaint: poss UTI, Mode of Arrival: Ambulatory Source of Information: Patient Limitations: No Limitations Time Seen by Provider: 03/22/24 18:48 Description of Symptoms (Recalled from Triage Doc. by RN): PATIENT C/O ITCHING TO GENITAL AREA X 5 DAYS HEENT Symptoms (Recalled from RN notes): No Resp Symptoms (Recalled from RN notes): No Skin Symptoms (Recalled from RN notes): No MS Symptoms (Recalled from RN notes): No Functional Status (Recalled from RN notes): WNL History of Present Illness Provider Complaint: 28-year-old female presents for vaginal itching and burning. Patient states she thinks she just has a yeast infection. Patient states she has had yeast infection in the past and this feels like her normal yeast infection. Patient states she is has no new sex partners and does not believe her's has been unfaithful. Related Data Home Medications ?Medication ?Instructions ?Recorded ?Confirmed norgestimate 0.25 mg-ethinyl 1 tab PO DAILY 03/22/24 03/22/24 estradiol 35 mcg tablet (Sprintec (28)) trazodone 50 mg tablet 50 mg PO HS 03/22/24 03/22/24 Previous Rx's ?Medication ?Instructions ?Recorded fluconazole 100 mg tablet 100 mg PO DAILY #1 tab 03/22/24 (Diflucan) Allergies Allergy/AdvReac Type Severity Reaction Status Date / Time amoxicillin Allergy Verified 12/26/23 13:05 Worker's Comp Is this a Worker's Comp case?: No [facility] Disclaimer: The information contained in this section may have been updated after the patient was seen, as this information can be updated by other users. 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) Smoking Status: Current every day smoker tobacco type: cigarettes packs per day: 1 second hand exposure: No alcohol intake: never substance use type: former substance user and marijuana current occupational status: student and other Travel in the last 8 weeks: None household members: significant other housing: house current occupation: [employer] current occupational exposures/hazards: No caffeine: Yes ROS Obtained: Yes Systems reviewed as appropriate & no additional complaints except as documented Physical Exam General General appearance: alert and in no apparent distress ENT ENT exam: Present normal exam Respiratory Respiratory exam: Present normal lung sounds bilaterally Cardiovascular Cardiovascular exam: Present regular rate and normal rhythm Neurological Exam Neurological exam: Present alert and oriented X3 Skin Skin exam: Present warm and intact Medical Decision Making Medical Records Medical records reviewed: Yes I reviewed the patient's medical records. Screening: Per USPSTF and CDC recommendations, given the prevalence of disease in our region, it is our hospital?s policy to screen for HIV and viral Hepatitis for all patients aged 18 and over and those with ongoing risk factors. Edd Inquiry Pt receiving controlled substance: No Edd was queried for this patient: No Vital Signs: 03/22/24 18:25 Temperature 98.3 F Temperature Source Oral Pulse Rate [Left Brachial] 91 H Respiratory Rate 18 Blood Pressure [Left Arm] 136/86 Blood Pressure Mean [Left Arm] 102 Blood Pressure Source [Left Arm] Automatic Cuff Blood Pressure Position [Left Arm] Sitting 02 Sat by Pulse Oximetry 98 Oxygen Delivery Method Room Air Lab Data Lab results reviewed: Yes I reviewed the patient's lab results. Lab Results 03/22/24 18:21: Urine Color Dark yellow, Urine Appearance Cloudy, Urine pH 5.0, Ur Specific [place] 1.030, Urine Protein Trace, Urine Glucose (UA) Negative, Urine Ketones Trace, Urine Blood Negative, Urine Nitrate Negative, Urine Bilirubin 1+ A, Urine Urobilinogen 0.2, Ur Leukocyte Esterase Negative
[2024-03-22 18:57] VITALS: BP 136/86; PULSE 91; RESP 18; TEMP 36.8; O2SAT 98
[2024-03-22 18:59] LABS: UTC Pregnancy Test, Urine Negative (Negative)
== END 2024-03-22 19:00 | disposition home or self-care (01) ==
PROVIDERS: Emergency Provider Nurse Practitioner Family
DX: B37.31 Acute candidiasis of vulva and vagina (principal)
CPT/HCPCS: 81003; 81025; 99213; G0381

== ENCOUNTER 2024-05-22 09:12 | Emergency (ER) | payer OTHER, SELFPAY ==
--- NOTE | 2024-05-22 09:19 | ED_ITS ---
Discharge Plan Disposition Patient Disposition: Home, Self-Care Condition: Good Prescriptions Prescriptions: No Action norgestimate-ethinyl estradiol [Sprintec (28)] 0.25-35 mg-mcg tablet 1 tab PO DAILY Patient Comments: TAKE 1 TABLET BY MOUTH ONCE DAILY trazodone 50 mg tablet 50 mg PO HS Patient Comments: TAKE 1 TABLET BY MOUTH ONCE DAILY AT NIGHT fluconazole [Diflucan] 100 mg tablet 100 mg PO DAILY Qty: 1 1RF Rx Instructions: 1 tab now may repeat after 3 days if symptoms not improved. Referrals Follow up/Referrals: Jolanta Whitaker PA [Primary Care Provider] - See instructions Activity Restrictions/Add. Instructions Additional Instructions/Restrictions: Follow up with your regular doctor as discused GO TO THE ER FOR ANY WORSENING SYMPTOMS If you have any worsening abdominal pain make sure you return and go through the ER. We will culture the urine to make absolutely sure this is not a UTI. That test will tell if there's a bacteria in your urine and which antibiotics will treat it best. This test takes 3 days to complete. Clinical Impressions Clinical Impression: Urinary frequency, Abdominal discomfort Instructions Patient Instructions: Urine Culture, DI for Dysuria -- Adult Print Language Print Language: Finnish Discharge ED Provider: Carlos Green [facility] [place] General Stated complaint: pain and frequent urination Time Seen by Provider: 05/22/24 09:19 Related Data Home Medications ?Medication ?Instructions ?Recorded ?Confirmed norgestimate 0.25 mg-ethinyl 1 tab PO DAILY 03/22/24 03/22/24 estradiol 35 mcg tablet (Sprintec (28)) trazodone 50 mg tablet 50 mg PO HS 03/22/24 03/22/24 Previous Rx's ?Medication ?Instructions ?Recorded fluconazole 100 mg tablet 100 mg PO DAILY #1 tab 03/22/24 (Diflucan) Allergies Allergy/AdvReac Type Severity Reaction Status Date / Time amoxicillin Allergy Verified 12/26/23 13:05 [facility] Disclaimer: The information contained in this section may have been updated after the patient was seen, as this information can be updated by other users. 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) Smoking Status: Current every day smoker tobacco type: cigarettes packs per day: 1 second hand exposure: No alcohol intake: never substance use type: former substance user and marijuana current occupational status: student and other Travel in the last 8 weeks: None household members: significant other housing: house current occupation: [employer] current occupational exposures/hazards: No caffeine: Yes Have you lived/traveled outside US in past 30 days?: No Contact w/someone who lives/traveled outside US past 30 days?: No Exposure to someone with infectious disease in past 14 days?: No Do you have a fever (greater than 100.4 F or 38 C)?: No Have you tested positive for COVID-19: No Exposed to someone with COVID-19 in past 14 days?: No Do you have a sore throat?: No Do you have a cough?: No Do you have any weakness?: No Do you have any diarrhea?: No Are you experiencing any unusual bleeding?: No Do you have any muscle aches/pain?: No Do you have any abdominal pain?: No Are you experiencing loss of taste or smell?: No ROS Obtained: Yes All systems reviewed & no additional complaints except as documented Constitutional Constitutional: Reports system reviewed and no additional complaints, except as documented, Denies chills and Denies fever(s) Eyes Eyes: Denies eye discharge ENT Ears, Nose, Mouth, and Throat: Denies dysphagia, Denies sore throat and Denies throat swelling Cardiovascular Cardiovascular: Denies chest pain and Denies dyspnea Respiratory Respiratory: Denies chest congestion, Denies cough and Denies dyspnea Gastrointestinal Gastrointestingal: Denies abdominal pain, constipation, diarrhea, dysphagia, nausea or vomiting Genitourinary Female Genitourinary: Reports as per HPI, Reports dysuria, Reports urinary frequency, Denies urinary incontinence, Reports urinary hesitancy and Denies urinary urgency Musculoskeletal Musculoskeletal: Denies arthralgias and Reports back pain Integumentary/Breasts Skin/Breast: Denies rash Neurologic Neurologic: Denies paresthesias Allergic/Immunologic Allergic/Immunologic: Denies throat swelling Physical Exam General General appearance: alert and in no apparent distress Head Head exam: atraumatic, normocephalic and normal inspection Eye Eye exam: Present normal appearance, PERRL and EOMI ENT ENT exam: Present normal exam, normal oropharynx, mucous membranes moist, TM's normal bilaterally and normal external ear exam Neck Neck exam: Present normal inspection, full ROM and trachea midline; Absent meningismus or lymphadenopathy Chest Chest inspection: Present normal inspection and symmetric chest wall rise; Absent tenderness Respiratory Respiratory exam: Present normal lung sounds bilaterally; Absent respiratory distress Cardiovascular Cardiovascular exam: Present regular rate and normal rhythm; Absent JVD Abdominal Exam Abdominal exam: Present soft and normal bowel sounds; Absent distention, tenderness or guarding Extremities Exam Extremities exam: Present normal inspection, full ROM and normal capillary refill; Absent calf tenderness Back Exam Back exam: Present normal inspection; Absent tenderness Neurological Exam Neurological exam: Present alert and oriented X3 Psychiatric Psychiatric exam: Present normal affect and normal mood Skin Skin exam: Present warm, dry, intact and normal color Lymphatic Lymphatic Findings: no adenopathy Medical Decision Making Medical Records Medical records reviewed: No I reviewed the patient's medical records. Screening: Per USPSTF and CDC recommendations, given the prevalence of disease in our region, it is our hospital?s policy to screen for HIV and viral Hepatitis for all patients aged 18 and over and those with ongoing risk factors. Edd Inquiry Pt receiving controlled substance: No Lab Data Lab results reviewed: Yes I reviewed the patient's lab results.
[2024-05-22 09:25] VITALS: BP 123/81; PULSE 96; RESP 16; TEMP 36.5; O2SAT 98; BMI 35.9
[2024-05-22 09:28] LABS: Color,Urine Yellow (Yellow)
[2024-05-22 09:29] LABS: Apearance,Urine Clear (Clear); Bilirubin,Urine Negative (Negative); Blood, Urine Trace (Negative); Glucose,Urine (UA) Negative (Negative); Ketones,Urine Negative (Negative); Protein,Urine Negative (Negative); UTC Leukocyte Esterase,Urine Negative (Negative); UTC Nitrate,Urine Negative (Negative); Urobilinogen,Urine 0.2 EU/dl (0.2)
[2024-05-22 09:48] LABS: POC Glucose,Bedside 110 (70-110)
[2024-05-22 10:15] VITALS: BP 123/81; PULSE 96; RESP 16; TEMP 36.5; O2SAT 98
== END 2024-05-22 10:16 | disposition home or self-care (01) ==
PROVIDERS: Emergency Provider Nurse Practitioner Family; PCP Physician Assistant
DX: R35.0 Frequency of micturition (principal); R10.9 Unspecified abdominal pain
CPT/HCPCS: 81003; 82962; 87086; 99212; G0381

== ENCOUNTER 2025-01-27 08:56 | Outpatient (CLI) | payer OTHER, SELFPAY ==
--- OUTSIDE RECORDS SUMMARY | 2024-11-25 10:30 | XMS_ITS | Encounter Summary ---
Author Organization Healthcare Address [address] 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 Ines Morris PA [address] [facility] [address] [place] [address] Phone: tel: fax: Referral ID Status Reason Start Date Expiration Date V isits Requested Visits Authorized [id number] Closed Specialty Services Required 06/25/2024 12/25/2025 1 1 Encounter Details Date Type Department Care Team ([facility] Contact Info) Description 11/25/2024 10:30 AM EDT Office Visit Medical Office Building Obstetrics and Gynecology [address], [address] [place] [address] Yony Hernandez MD [address] [facility] [address] [place] [address] PCOS (polycystic ovarian syndrome) (Primary Dx) Social History Tobacco Use Types Packs/Day Years Used Date Smoking Tobacco: Every Day Cigarettes 0.3 14 Passive Smoke Exposure: Current Smokeless Tobacco: Never Comments:Working on [facility] total use Alcohol Use Standard Drinks/Week Comments Not Currently 0 (1 standard drink = 0.6 oz pur e alcohol) PHQ-2 Answer Date Recorded Patient Health Questionnaire-2 Score 0 05/25/2024 PHQ-9 Answer Date Recorded Patient Health Questionnaire-9 Score 0 05/25/2024 PHQ-2A Answer Date Recorded Patient Health Questionnaire-2 Score 0 07/11/2022 Comments No Sex and Gender Information Value Date Recorded Sex Assigned at Not on file Legal Sex Female 6:54 PM EDT Gender Identity Not on file Sexual Orientation Not on file documented as of this encounter Last Filed Vital Signs Vital Sign Reading Time Taken Comments Blood Pressure 117/77 11/25/2024 10:55 AM EDT Pulse 95 11/25/2024 10:55 AM EDT Temperature - - Respiratory Rate - - Oxygen Saturation 96% 11/25/2024 10:55 AM EDT Inhaled Oxygen Concentration - - Weight 87.1 kg (192 lb 0.3 oz) 11/25/2024 10:55 AM EDT Height 152.4 cm (5') 11/25/2024 10:55 AM EDT Body Mass Index 37.5 11/25/2024 10:55 AM EDT documented in this encounter Miscellaneous Notes * Assessment & Plan Note - Yony Hernandez MD - 11/25/2024 10:30 AM EDT Associated Problem(s): PCOS (polycystic ovarian syndrome) * Progress Notes - Yony Hernandez MD - 11/25/2024 10:30 AM EDT Gynecology Note Consult Requested By: PATRICK Anders [address] [address] Subjective PCOS Terri Kaplan is a 29 y.o. here for a new gynecologic visit. HPI 29 yo presents due to PCOS. She has previously seen providers in [place]. She was diagnosed with PCOS, has h/o irregular menstrual cycles. She previously took OCPs and had regular menses. She developed headaches with OCPs and neurology recommended she stop OCPs and consider another option. We discussed treatment options today. She is having monthly menses at this time and does not want further treatment. We discussed the need for menses at least every 2-3 months for endometrial protection. Overall she is feeling well at this time and does not want further treatment. Her last pap was 1-2 yrs ago and was NL, no prior abnormal pap smears. She has had prior BTL for contraception. She is followed by PCP in [place], [place]. Past Medical History She has a past medical history of ADHD and Polycystic ovary syndrome. Past Surgical History She has a past surgical history that includes Vaginal delivery (N/A); Tympanostomy tube placement; [place] tooth extraction; Tonsillectomy; Cholecystectomy; and Salpingectomy (Bilateral). Social History She reports that she has been smoking cigarettes. She has a 3.5 pack-year smoking history. She has been exposed to tobacco smoke. She has never used smokeless tobacco. She reports that she does not currently use alcohol. She reports that she does not use drugs. Family History Her family history includes Breast cancer in her maternal grandmother and paternal grandmother. Breast Cancer - Paternal Grandmother Current Medications She has a current medication list which includes the following prescription(s): ergocalciferol, esomeprazole, ferrous gluconate, fexofenadine, fluticasone, multivitamin, propranolol, rizatriptan, biotin, cetirizine, cholecalciferol, hydrocortisone, magnesium, magnesium lactate cr, norgestimate-ethinyl estradiol, olopatadine, omeprazole, spironolactone, topiramate, and trazodone. Allergies Allergies[1] Review of Systems Constitutional: Negative. HENT: Negative. Respiratory: Negative. Cardiovascular: Negative. Gastrointestinal: Negative. Endocrine: Negative. Genitourinary: Negative. Musculoskeletal: Negative. Neurological: Negative. Hematological: Negative. Psychiatric/Behavioral: Negative. Objective Visit Vitals BP 117/77 (BP Location: Left arm, Patient Position: Sitting) Pulse 95 Body mass index is 37.5 kg/m??. Physical Exam Constitutional: Appearance: Normal appearance. Assessment/Plan 29 yo with h/o PCOS 1. PCOS - Overall doing well at this time and having regular menses. We discussed treatment options, she does not want further treatment at this time. She had headaches on OCPs, neurology recommendedshe stop OCPs. She has h/o migraines, but denies aura. She is due for pap smear next yr. RTC in 1 yr or sooner prn. Time Spent: I personally spent a total of 20 minutes on this encounter. This time includes face to face with patient, counseling and discussion and/or coordination of care. Assessment & Plan PCOS (polycystic ovarian syndrome) [1] Allergies Allergen Reactions Penicillins Swelling Facial swelling around jaw line. Can still breath. Amoxicillin Unknown - Patient states they do not know rxn details documented in this encounter Plan of Treatment Upcoming Encounters Date Type Department Care Team (Late st Contact Info) Description 04/02/2025 11:20 AM EST [facility] [address] [place] [address] Ines Morris, PA [address] [place] [address] 08/04/2025 11:00 AM EDT Office Visit [facility] [address] [place] [address] Yoon Ye, OD [address] [facility] [address] [place] [address] 11/29/2025 10:15 AM EDT Office Visit Medical Office Building Obstetrics and Gynecology [address], [address] [place] [address] Yony Hernandez MD [address] [facility] [address] [place] [address] documented as of this encounter Visit Diagnoses Diagnosis PCOS (polycystic ovarian syndrome)- Primary Polycystic ovaries documented in this encounter Additional Health Concerns Assessment Noted Time PHQ-9 Depression Total Score: 0 05/25/19 9:54 AM EST A fall risk assessment has been complete d for the patient 07/06/2024 2:39 PM EDT A Body Mass Index follow-up plan has been documented for the patient 11/30/2024 7:09 PM EDT documented as of this encounter Care Teams Metal Polisher Relationship Specialty Start Date End Date Jolanta Whitaker PA [address] [place] [address] PCP - General 09/24/24 documented as of this encounter
--- NOTE | 2025-01-27 08:58 | XR_ITS ---
FINAL REPORT CLINICAL HISTORY: cough/chest congestion COMPARISON: None FINDINGS: PA and lateral views of the chest are obtained. There is no prior exam for comparison. The cardiac and mediastinal silhouettes are within normal limits. The lungs are clear. There is no pleural effusion, pneumothorax, or acute osseous abnormality. IMPRESSION: No radiographic evidence of acute cardiac or pulmonary disease. Reviewed, Interpreted and Dictated by Laurie Lopez MD Transcribed by Nicol Ruggiero Authenticated and [facility]
--- OUTSIDE RECORDS SUMMARY | 2025-01-27 09:11 | XMS_ITS | Clinical Summary ---
[facility] [address] [place] [address] Care Team Providers Care Agriculture Extension Specialist Name Role Phone Dorothy Rios APRN Primary Care Provider [phone] Social History Tobacco Use Types Packs/Day Years Used Date Smoking Tobacco: Never Assessed Abuse Screen Answer Date Recorded Unsafe at Home or Work/School Not on file Feels Threatened by Someone? Not on file Does Anyone Keep You from Co ntacting Others or Doint Things Outside the Home? Not on file 01/25/2023 Physical Sign of Abuse Present Not on file 1 Housing Stability Answer Date Recorded Current Living Arrangements Not on file 01/13 Potentially Unsafe Housing Conditions Not on elie e 01/25/2023 Family and Community Support Answer Corey e Recorded Help with Day-to-Day Activities Not on file 01/25/2023 Lonely or Isolated Not on file 01/25/2023 Employment Answer Date Recorded Do you want help finding or keeping work or a fallon b? Not on file 01/25/2023 Disabilities Answer Date Recorded Concentrating, Remembering, or Making Decisions Difficulty Not on file 01/25/2023 Doing Errands Independently Difficulty Not on fi le 01/25/2023 Education Answer Date Recorded Help with school or training? Not on file Preferred Language Not on file 01/25/2023 Comments Unknown Sex and Gender Information Value Date Recorded Sex Assigned at Not on file Legal Sex Female 11:27 AM EDT Gender Identity Not on file Sexual Orientation Not on file Plan of Treatment Health Maintenance Due Date Last Done Comments ANNUAL PHYSICAL 1994 Annual Gynecologic Pelvic an d Breast Exam 1994 HEPATITIS C SCREENING 1994 INFLUENZA VACCINE 11/13/2024 02/16/2016 TDAP/TD VACCINES (2 - Td or Tdap) 07/21/2031 022 Pneumococcal Vaccine 0-49 Aged Out No longer eligible based on patient's age to complete this topic Insurance [facility] Care Teams Agriculture Extension Specialist Relationship Specialty Start Date End Date Dorothy Rios APRN PCP - General Internal Medicine 11/22/21
--- OUTSIDE RECORDS SUMMARY | 2025-01-27 09:11 | XMS_ITS | Clinical Summary ---
Author Organization [facility] Address [address] [place] [address] Care Team Providers Care Screw Machine Set Up Operator Tool Name Role Phone Jolanta Whitaker Primary Care Provider [phone] Allergies Active Allergy Reactions Criticality Noted Date Comments Amoxicillin Unknown - Patient st ates they do not know rxn details Low 07/19/2021 Penicillins Swelling High 07/19/2021 Facial swelling around jaw line. Can still breath. Medications cetirizine (ZyrTEC) 10 MG tablet Take 1 tablet (10 mg) by mouth if needed for allergies. 2 Active omeprazole (PriLOSEC) [address] capsule Take 1 capsule (40 mg) by mouth 1 (one) time each day. Do not crush or chew. Active norgestimate-eth inyl estradiol (Sprintec 28) 0.25-35 MG-MCG tabletIndication s:PCOS (polycystic ovarian syndrome) Take 1 tablet by mouth 1 (one) time each day. 28 tablet 12 4 Active Additional Information Patient not taking.Reported on 07/06/2024 fexofenadine (Kaci) 180 MG tablet Take 1 tablet (180 mg) by mouth 1 (one) time each day. 60 tablet 4 Active hydrocortisone 2.5 % ointment Bid on affected skin x 3 weeks or until rash resolves 28.35 g 1 4 Active Additional Information Patient not taking.Reported on 06/25/2024 traZODone (Desyrel) 50 MG tabletIndication s:Insomnia, unspecified type Take 1 tablet (50 mg) by mouth every night. 30 tablet 3 4 Active Additional Information Patient not taking.Reported on 07/06/2024 topiramate (Topamax) 50 MG tablet Take 0.5 tablets (25 mg) by mouth 1 (one) time each day. 15 tablet 4 Active Additional Information Patient not taking.Reported on 07/06/2024 olopatadine (Patanase) 0.6 % solution nasal spray Administer 2 sprays into affected nostril(s) 2 (two) times a day. 30.5 g 3 4 Active Additional Information Patient not taking.Reported on 07/06/2024 fluticasone (Flonase) 50 MCG/ACT nasal spray Administer 1 spray into each nostril 2 (two) times a day. Shake gently. Before first use, prime pump. After use, clean tip and replace cap. 16 g 12 4 Active esomeprazole (NexIUM) [address] capsule as needed. 5 Active magnesium lactate CR (Magtab) 84 MG (7MEQ) ER tablet Take 1 tablet (84 mg) by mouth daily. Active ferrous gluconate (Fergon) 324 (38 Fe) MG tablet Take 1 tablet (324 mg) by mouth daily with breakfast. Active Multiple Vitamin (multivitamin) tablet Take 1 tablet by mouth daily. Active rizatriptan (Maxalt) 10 MG tablet Take 1 tablet (10 mg) by mouth 1 (one) time as needed for migraine for up to 9 doses. May repeat in 2 hours if unresolved. Do not exceed 30 mg in 24 hours. 9 tablet 3 5 Active propranolol (Inderal) 10 MG tablet TAKE 1 TABLET BY MOUTH IN THE MORNING AND 1 BEFORE BEDTIME 30 tablet 6 5 Active spironolactone (Aldactone) 25 MG tablet Take 1 tablet by mouth daily. Active cholecalciferol (Vitamin D-3) 50 MCG (2000 UT) tablet Take 1 tablet by mouth daily. Active ergocalciferol 1.25 MG (19041 UT) capsule Take 1 capsule by mouth 1 time per week. 5 Active biotin 5 MG capsule Take 1 capsule by mouth daily. Active Magnesium 400 MG capsule Active Active Problems Problem Noted Date Diagnosed Date Chronic intractable headache 07/06/2024 Myopia of both eyes 07/06/2024 Obesity (BMI 35.0-39.9 without comorbidity) 01/13 PCOS (polycystic ovarian syndrome) 12/20/2023 Assessment & Plan (11/30/2024 7:09 PM EDT): Secondary oligomenorrhea 12/02/2023 No periods 12/02/2023 Resolved Problems Problem Noted Date Diagnosed Date Resolved Date Breast pain, left 07/11/2022 12/02/2023 Assessment & Plan (07/11/2022 5:18 PM EDT): - mobile mass palpated in upper quadrant and left side of left breast; tender to palpation - no masses in right breast - no nipple discharge observed bilaterally - ordered U/S to evaluate mass - RTC if pain worsens or as needed Postoperative visit 09/20/2021 12/02/19 Assessment & Plan (09/20/2021 11:16 AM EDT): - doing well from a post-operative standpoint - benign pathology - return to normal activity Anal itching 09/20/2021 12/02/2023 Assessment & Plan (09/20/2021 11:17 AM EDT): Exam consistent with candidiasis Diflucan Rx sent Has nystatin cream at home rec to stop using hydrocortisone cream Encounter for female sterilization procedure 2 12/02/2023 Assessment & Plan (07/19/2021 10:53 AM EDT): - KMA signed today - discussed bilateral laparoscopic salpingectomy with patient - she would like to proceed - scheduled for 08/22/21 - is having workup with PCP for possible need for cholecystectomy - if she does need will work with surgeon to do both procedures at once - RTC for pre-op visit Encounters Date Type Department Care Team Description 11/25/2024 10:30 AM EDT Office Visit Medical Office Building Obstetrics and Gynecology [address], [address] [place] [address] Yony Hernandez MD PCOS (polycystic ovarian syndrome) (Primary Dx) 11/25/2024 Travel from Last 3 Months Immunizations Immunization Administration Dates Next Due DTaP 08/02/1998 Influenza, injectable, quadrivalent 02/16/2016 MMR 08/02/1998 OPV Bivalent - Non-US 08/02/1998 Tdap 07/20/2021 Varicella 02/04/1996 Family History Medical History Relation Name Comments Breast cancer Maternal Grandmother Breast cancer Paternal Grandmother Relation Name Status Comments Maternal Grandmother Paternal Grandmother Social History Tobacco Use Types Packs/Day Years Used Date Smoking Tobacco: Every Day Cigarettes 0.3 14 Passive Smoke Exposure: Current Smokeless Tobacco: Never Tobacco Cessation:Ready to Q uit: Yes; Counseling Given: Yes Comments:Working on decreasing total use Alcohol Use Standard Drinks/Week Comments [...] on file Sexual Orientation Not on file Last Filed Vital Signs Vital Sign Reading Time Taken Comments Blood Pressure 117/77 11/25/2024 10:55 AM EDT Pulse 95 11/25/2024 10:55 AM EDT Temperature 36.6 C (97.8 F) 04/02/2024 1:31 PM EST Respiratory Rate 14 03/19/2024 10:25 AM EST Oxygen Saturation 96% 11/25/2024 10:55 AM EDT Inhaled Oxygen Concentration - - Weight 87.1 kg (192 lb 0.3 oz) 11/25/2024 10:55 AM EDT Height 152.4 cm (5') 11/25/2024 10:55 AM EDT Body Mass Index 37.5 11/25/2024 10:55 AM EDT Plan of Treatment Upcoming Encounters Date Type Department Care Team (Late st Contact Info) Description 04/02/2025 11:20 AM EST Office Visit [place] [facility] [address], [address] [place] [address] Ines Morris, PA [address] [place] [address] 08/04/2025 11:00 AM EDT Office Visit [facility] [address] [place] [address] Yoon Ye, OD [address] [place] [address] 11/29/2025 10:15 AM EDT Office Visit Medical Office Building Obstetrics and Gynecology [address] [facility], [address] [place] [address] Yony Hernandez MD [address] [place] [address] Health Maintenance Due Date Last Done Comments [facility]-/Child/Adol SDOH Screenings 1994 [facility]-Varicella Vaccines (2 of 2 - 2-dose childhood series) 08/30/1998 02/04/1996 [facility]- SDOH Screenings 2012 [facility]-Adult SDOH Screenings 2012 [facility]-Hepatitis B Vaccines (1 of 3 - 19+ 3-dose series) 2013 [facility]-Pneumococcal Vaccine: Pediatrics (0 to 5 Years) and At-Risk Patients (6 to 49 Years) (1 of 2 - PCV) 2013 [facility]-Pap Smear 06/30/2015 HPV Vaccines (1 - 3-dose SCDM series) 2021 [facility]-Cervical Cancer Screening 2024 [facility]-HPV/Cotest 2024 [facility]-[id number]-66 Vaccine ( - season) 2024 [facility]-Influenza Vaccine (#1) 2024 02/16/2016 [facility]-Depression Screening 05/25/2025 05/25/2024, 05/16 [facility]-DTaP,Tdap,and Td Vaccines (3 - Td or Tdap) 07/21/2031 07/20/2021, 08/02/1998 [facility]-Zoster Vaccines (1 of 2) 2044 02/04/1996 [facility]-IPV Vaccines Aged Out 08/02/1998, 08/02/1998 N o longer eligible based on patient's age to complete this topic [facility]-HIV Screening Completed 2019, , 02/03/2016, Additional history exists [facility]-Hepatitis C Screening Completed 2019, 03/17/2018, 02/03/2016, Additional history exists [facility]-Obesity Intervention Completed 025, 10/02/2024, 07/06/2024, Additional history exists [facility]-HIB Vaccines Aged Out No longer e ligible based on patient's age to complete this topic [facility]-Hepatitis A Vaccines Aged Out No longer eligible based on patient's age to complete this topic [facility]-Rotavirus Vaccines Aged Out No lo nger eligible based on patient's age to complete this topic Procedures Procedure Name Priority Date/Time Associated Diagnosis Comments HEPATITIS C ANTIBODY W/REFLEX TO HCV QUANT PCR Routine 2019 4:16 PM EDT HIV 1/2 ANTIBODY/ANTIGEN SCREEN WITH REFLEX TO HIV I/II DIFFERENTIATION Routine 2019 4:16 PM EDT from Last 3 Months or Most Recently Relevant to Health Maintenance Results * HIV 1 & 2 Antibody/Antigen Screen (2019 4:16 PM EDT) HIV 1 Result NONREACTIVE Screening for HIV 1 and 2 antibodies is NONREACTIVE. No confirmatory testing is required. SUNQUEST 2019 4:16 PM EDT 2019 6:02 PM EDT us Carlos Davila MD LAB BLOOD ORDERABLES Final Res ult SUNQUEST * Hepatitis C Antibody (2019 4:16 PM EDT) Hepatitis C Antibody NEGATIVE Reference Range: Negative SUNQUEST 2019 4:16 PM EDT 2019 6:02 PM EDT us Carlos Davila MD LAB BLOOD ORDERABLES Final Res ult SUNQUEST from Last 3 Months or Most Recently Relevant to Health Maintenance Insurance [employer] Care Teams Screw Machine Set Up Operator Tool Relationship Specialty Start Date End Date Jolanta Whitaker PA [address] [place] [address] PCP - General 09/24/24
== END 2025-01-27 23:59 | disposition home or self-care (01) ==
LOC: RAD 08:57
PROVIDERS: PCP Physician Assistant; Visit Provider Nurse Practitioner
DX: R05.9 Cough, unspecified (principal); R09.89 Other specified symptoms and signs involving the circulatory and respiratory systems
CPT/HCPCS: 71046